=== PATIENT | female | born 1940 | race Caucasian/White ===

== ENCOUNTER → 2016-12-01 | Outpatient (CLI) | payer OTHER, MEDICARE ==
[~2016-12-01] MED LIST: ALL300 PO; ALPR1TAB3 PO; ASPI-232 PO; CHOL100010 PO; CHOL4POW6 PO; GLC500 PO; INSUINJ4 SC; IPRA1AER2 INH; LISI-461 PO; MELO7.5T5 PO; NYST100098 TOP; OMEG10007 PO; POTA1080 PO; TPRSR/100 PO
== END | disposition home or self-care (01) ==
LOC: C.LAB 09:48
PROVIDERS: ATTEND Nurse Practitioner Adult Health
DX: N20.0 Calculus of kidney (principal)

== ENCOUNTER → 2016-12-05 | Outpatient (CLI) | payer OTHER, MEDICARE ==
[2016-12-05 17:16] LABS: URINE APPEARANCE CLOUDY (CLEAR); URINE BILIRUBIN NEG (NEG); URINE COLOR YELLOW; URINE EPITHELIAL CELL AUTO >30 /lpf (0-5); URINE NITRITE NEG (NEG); URINE SPECIFIC GRAVITY 1.025 (1.000-1.030); UROBILINOGEN NEG (NEG)
[2016-12-05 17:17] LABS: MANUAL MICROSCOPIC REQUIRED? NO; REVIEW REQ? NO
[2016-12-05 17:24] LABS: ALT/SGPT 24 U/L (12-78); AST/SGOT 10 U/L (15-37); BLOOD UREA NITROGEN 26 mg/dl (7-18); BUN/CREATININE RATIO 21.5 (10-20); CALCIUM 9.1 mg/dl (8.5-10.1); CARBON DIOXIDE 27 mmol/L (21-32); CHLORIDE 107 mmol/L (98-107); GLUCOSE 158 mg/dl (70-99); POTASSIUM 4.6 mmol/L (3.5-5.1); SODIUM 143 mmol/L (136-145)
[2016-12-05 17:35] LABS: ALB/GLOB RATIO 0.9 (0.9-2); ALKALINE PHOSPHATASE 79 U/L (45-117)
[2016-12-05 18:14] LABS: BASO % 0.5 %; BASO ABS # 0.05 K/uL (0-0.2); COMPLETE YES; EOS % 2.8 %; GIANT PLATELETS 1+; HEMATOCRIT 41.1 % (37-47); IG% 0.7 %; LYMPH % 21.7 %; MEAN CELL VOLUME 95.4 fL (80-100); MEAN CORPUSCULAR HEMOGLOBIN 31.8 pg (25-34); MEAN CORPUSCULAR HGB CONC 33.3 g/dl (32-36); MEAN PLATELET VOLUME 11.2 fL (7.4-10.4); MONO % 5.6 %; NEUT % 68.7 %; PLATELET COUNT 393 K/uL (130-400); RED BLOOD COUNT 4.31 M/uL (4.2-5.4); SMUDGE CELLS PRESENT; WHITE BLOOD COUNT 9.23 K/uL (4.8-10.8)
== END | disposition home or self-care (01) ==
LOC: C.LABBFT 18:05
PROVIDERS: ATTEND Internal Medicine
DX: R41.0 Disorientation, unspecified (principal)

== ENCOUNTER → 2017-04-02 | Outpatient (CLI) | payer OTHER, MEDICARE ==
[2017-04-02 12:13] LABS: BASO % 0.3 %; BASO ABS # 0.03 K/uL (0-0.2); COMPLETE YES; EOS % 1.9 %; HEMATOCRIT 41.7 % (37-47); IG% 0.3 %; LYMPH % 17.1 %; LYMPH ABS # 1.49 K/uL (1.2-3.4); MEAN CELL VOLUME 96.8 fL (80-100); MEAN CORPUSCULAR HEMOGLOBIN 31.3 pg (25-34); MEAN CORPUSCULAR HGB CONC 32.4 g/dl (32-36); MEAN PLATELET VOLUME 11.2 fL (7.4-10.4); MONO % 6.2 %; NEUT % 74.2 %; PLATELET COUNT 345 K/uL (130-400); RED BLOOD COUNT 4.31 M/uL (4.2-5.4); WHITE BLOOD COUNT 8.73 K/uL (4.8-10.8)
[2017-04-02 12:30] LABS: ESTIMATED AVERAGE GLUCOSE 163 mg/dl; HA1C FLAG Normal (Normal)
[2017-04-02 12:33] LABS: CALCIUM 9.6 mg/dl (8.5-10.1)
[2017-04-02 12:39] LABS: BLOOD UREA NITROGEN 27 mg/dl (7-18); GLUCOSE 131 mg/dl (70-99)
[2017-04-02 12:40] LABS: ALT/SGPT 23 U/L (12-78); AST/SGOT 11 U/L (15-37); BUN/CREATININE RATIO 24.6 (10-20); CARBON DIOXIDE 22 mmol/L (21-32); CHLORIDE 108 mmol/L (98-107); POTASSIUM 4.4 mmol/L (3.5-5.1); SODIUM 140 mmol/L (136-145)
[2017-04-02 12:50] LABS: ALB/GLOB RATIO 0.9 (0.9-2); ALKALINE PHOSPHATASE 73 U/L (45-117); CHOLESTEROL 183 mg/dl (0-200); CHOLESTEROL/HDL RATIO 5.7; HDL CHOLESTEROL 32 mg/dl; LDL CHOLESTEROL CALCULATED 84 mg/dl; TRIGLYCERIDES 333 mg/dl (0-150); VERY LOW DENSITY LIPOPROT CALC 67 mg/dl
== END | disposition home or self-care (01) ==
LOC: C.LABBFT 10:58
PROVIDERS: ATTEND Internal Medicine
DX: R79.9 Abnormal finding of blood chemistry, unspecified (principal); E11.21 Type 2 diabetes mellitus with diabetic nephropathy

== ENCOUNTER → 2017-04-06 | Outpatient (CLI) | payer OTHER, MEDICARE ==
[2017-04-06 17:39] LABS: MANUAL MICROSCOPIC REQUIRED? NO; REVIEW REQ? NO; URINE APPEARANCE TURBID (CLEAR); URINE BILIRUBIN NEG (NEG); URINE COLOR YELLOW; URINE EPITHELIAL CELL AUTO >30 /lpf (0-5); URINE NITRITE NEG (NEG); URINE SPECIFIC GRAVITY 1.027 (1.000-1.030); UROBILINOGEN NEG (NEG)
[2017-04-06 18:17] LABS: RATIO 347.9 mcg/mg (0-30.0)
== END ==
LOC: C.LABBFT 11:38
PROVIDERS: ATTEND Internal Medicine
DX: N39.0 Urinary tract infection, site not specified (principal)

== ENCOUNTER → 2017-05-05 | Outpatient (CLI) | payer OTHER, MEDICARE ==
[~2017-05-05] MED LIST changes: +OPTIRAY 320 IV PRN
--- NOTE | 2017-05-05 10:27 | DIAGNOSTIC IMAGING REPORT ---
ABD/PELVIS IV AND ORAL CONT HISTORY: 77 years-old Female with a follow-up exam. History of breast cancer. COMPARISON: CT chest of same day, PET/CT 07/04/2015, CT abdomen 12/13/2007. TECHNIQUE: Multiple axial CT images of the abdomen and pelvis were obtained following the intravenous administration of 119 mL Optiray 320. Oral contrast was also administered. A dose lowering technique was used consistent with the principals of SOLANGE. FINDINGS: Postsurgical changes are seen within the basal left lower lobe. Subsegmental bibasilar atelectasis is noted. No pneumoperitoneum is identified. Imaged inferior cardiac chambers appear enlarged with coronary arterial calcifications seen. Distal Neeibr-o-Gags catheter is seen terminating in the right atrium. There is diffuse fatty infiltration of the liver which appears enlarged. Multiple punctate calcifications are seen scattered throughout the splenic parenchyma consistent with healed granulomatous disease. Calcifications are seen within the mid pancreatic body suggesting sequela of chronic pancreatitis. There is moderate pancreatic atrophy. The right adrenal gland appears normal. There is a 1.4 x 1.1 cm lesion of the left adrenal gland which appears unchanged from comparison and was not FDG avid on comparison PET CT suggesting benign etiology. Gallbladder appears normal. There is low attenuating 8 mm lesion of the posterior aspect interpolar left kidney, nonspecific and unchanged suggesting cyst. Similar appearing 8 mm lesion is seen within the superior pole the right kidney. Urinary bladder is unremarkable. Uterus is atrophic. There is extensive atherosclerotic plaquing of the abdominal aorta and iliac vasculature. No pathologic-appearing adenopathy identified. There is no bowel obstruction. There are large lobulated fatty attenuating structures of the transverse colon suggesting lipomas, one of which measures 3.8 x 1.6 cm and the second measures 2.2 x 1.7 cm. Patient obesity is noted. No suspicious lytic or blastic bony lesions are identified. Severe multilevel lower lumbar spine facet arthropathy is noted. There is mild levoscoliosis of the lumbar spine. IMPRESSION: 1. Stable appearance of the abdomen and pelvis without acute process or evidence of metastatic disease. No pathologic adenopathy. 2. 1.4 x 1.1 cm lesion of the left adrenal gland is unchanged dating back to CT study dated 12/13/2007 compatible with benign etiology. 3. Hepatomegaly with hepatosteatosis. 4. Large nonobstructing intraluminal lipomas of the transverse colon are seen measuring up to 3.8 cm. 5. Additional incidental findings as above. The above report was generated using voice recognition software. It may contain grammatical, syntax or spelling errors. Electronically signed by: Cecilio Ham M.D. 05/05/2017 10:25 AM Dictated Date/Time: 05/05/2017 10:14 AM
--- NOTE | 2017-05-05 10:28 | DIAGNOSTIC IMAGING REPORT ---
(CHEST) THORAX WITH CT DOSE: HISTORY: Breast carcinoma FEMALE BREAST CA TECHNIQUE: Multiaxial CT images of the chest were performed following the intravenous administration of contrast. A dose lowering technique was utilized adhering to the principles of ALARA. COMPARISON: PET/CT dated 07/04/2015 FINDINGS: stable persistent left substernal thyroid. Atherosclerotic change thoracic aorta with no evidence for aneurysm. Pretracheal and. Esophageal nodes measuring up to 9 mm. Neva changes are considered similar as compared to the prior exam. Evaluation of lung parenchyma shows somewhat improved aeration compared to the prior study. Nodular density previously described measuring 1.3 cm appears less well-defined. 4 mm nodular density superior segment left lower lobe currently present on the prior exam. Small nodular density right base transaxial image 31 unchanged. Groundglass density left lung base stable. Degenerative changes thoracic spine stable. Sclerotic change of the posterior facets T3 unaltered. Potential erosive change and or destructive change T4. Increased sclerotic change. This potentially represents healing of a poorly visualized abnormality in the prior exam. IMPRESSION: Stable to slightly improved CT of the chest compared to the prior exam. No new or interval changes. Stable to improved parenchymal nodularity. Potential metastatic changes T3 and T4 showing increased sclerotic change which may indicate partial interval healing The above report was generated using voice recognition software. It may contain grammatical, syntax or spelling errors. Electronically signed by: Santi Licea M.D. 05/05/2017 10:26 AM Dictated Date/Time: 05/05/2017 10:14 AM
== END | disposition home or self-care (01) ==
LOC: C.CTS 04-27 12:25
PROVIDERS: ATTEND Nurse Practitioner Family
DX: C50.919 Malignant neoplasm of unspecified site of unspecified female breast (principal); E27.9 Disorder of adrenal gland, unspecified; R16.0 Hepatomegaly, not elsewhere classified; K76.0 Fatty (change of) liver, not elsewhere classified; D17.79 Benign lipomatous neoplasm of other sites; R91.8 Other nonspecific abnormal finding of lung field

== ENCOUNTER → 2017-08-21 | Outpatient (CLI) | payer OTHER, MEDICARE ==
[~2017-08-21] MED LIST changes: -OPTIRAY 320 IV PRN
[2017-08-21 12:09] LABS: BLOOD UREA NITROGEN 22 mg/dl (7-18); BUN/CREATININE RATIO 20.6 (10-20); CALCIUM 9.2 mg/dl (8.5-10.1); CARBON DIOXIDE 26 mmol/L (21-32); CHLORIDE 103 mmol/L (98-107); CREATININE 1.06 mg/dl (0.60-1.20); GLUCOSE 172 mg/dl (70-99); POTASSIUM 4.5 mmol/L (3.5-5.1); SODIUM 138 mmol/L (136-145)
== END | disposition home or self-care (01) ==
LOC: C.LAB 08:59
PROVIDERS: ATTEND Nurse Practitioner Adult Health
DX: N18.9 Chronic kidney disease, unspecified (principal)

== ENCOUNTER → 2017-09-30 | Outpatient (CLI) | payer OTHER, MEDICARE ==
[2017-09-30 17:31] LABS: BASO % 0.6 %; BASO ABS # 0.05 K/uL (0-0.2); COMPLETE YES; EOS % 2.6 %; HEMATOCRIT 42.2 % (37-47); IG% 0.7 %; LYMPH % 20.7 %; MEAN CELL VOLUME 99.1 fL (80-100); MEAN CORPUSCULAR HEMOGLOBIN 31.9 pg (25-34); MEAN CORPUSCULAR HGB CONC 32.2 g/dl (32-36); MEAN PLATELET VOLUME 11.2 fL (7.4-10.4); MONO % 7.8 %; NEUT % 67.6 %; PLATELET COUNT 344 K/uL (130-400); RED BLOOD COUNT 4.26 M/uL (4.2-5.4); WHITE BLOOD COUNT 8.69 K/uL (4.8-10.8)
[2017-09-30 17:44] LABS: BLOOD UREA NITROGEN 26 mg/dl (7-18); BUN/CREATININE RATIO 17.7 (10-20); CALCIUM 9.2 mg/dl (8.5-10.1); CARBON DIOXIDE 27 mmol/L (21-32); CHLORIDE 108 mmol/L (98-107); CREATININE 1.47 mg/dl (0.60-1.20); GLUCOSE 165 mg/dl (70-99); POTASSIUM 5.3 mmol/L (3.5-5.1); SODIUM 139 mmol/L (136-145)
[2017-09-30 17:57] LABS: ALB/GLOB RATIO 0.8 (0.9-2); ALKALINE PHOSPHATASE 80 U/L (45-117); ALT/SGPT 27 U/L (12-78); AST/SGOT 13 U/L (15-37); CHOLESTEROL 185 mg/dl (0-200); CHOLESTEROL/HDL RATIO 5.3; HDL CHOLESTEROL 35 mg/dl; LDL CHOLESTEROL CALCULATED 76 mg/dl; TRIGLYCERIDES 368 mg/dl (0-150); VERY LOW DENSITY LIPOPROT CALC 74 mg/dl
[2017-10-01 06:38] LABS: ESTIMATED AVERAGE GLUCOSE 174 mg/dl; HA1C FLAG Normal (Normal)
== END | disposition home or self-care (01) ==
LOC: C.LABBFT 15:36
PROVIDERS: ATTEND Internal Medicine
DX: E11.21 Type 2 diabetes mellitus with diabetic nephropathy (principal)

== ENCOUNTER → 2018-04-29 | Outpatient (CLI) | payer OTHER, MEDICARE ==
[2018-04-29 10:29] LABS: BASO % 0.6 %; BASO ABS # 0.06 K/uL (0-0.2); EOS % 1.9 %; EOS ABS # 0.19 K/uL (0-0.5); HEMATOCRIT 43.8 % (37-47); HEMOGLOBIN 14.7 g/dL (12.0-16.0); IG# 0.03 K/uL (0.00-0.02); LYMPH % 19.7 %; LYMPH ABS # 1.94 K/uL (1.2-3.4); MEAN CELL VOLUME 100.2 fL (80-100); MEAN CORPUSCULAR HEMOGLOBIN 33.6 pg (25-34); MEAN CORPUSCULAR HGB CONC 33.6 g/dl (32-36); MEAN PLATELET VOLUME 11.2 fL (7.4-10.4); MONO % 5.8 %; MONO ABS # 0.57 K/uL (0.11-0.59); NEUT % 71.7 %; NEUT ABS # 7.04 K/uL (1.4-6.5); PLATELET COUNT 354 K/uL (130-400); RED CELL DISTRIBUTION WIDTH CV 13.8 % (11.5-14.5); RED CELL DISTRIBUTION WIDTH SD 50.9 fL (36.4-46.3); WHITE BLOOD COUNT 9.83 K/uL (4.8-10.8)
[2018-04-29 10:48] LABS: ALBUMIN 3.4 gm/dl (3.4-5.0); ALKALINE PHOSPHATASE 83 U/L (45-117); ALT/SGPT 26 U/L (12-78); AST/SGOT 17 U/L (15-37); BLOOD UREA NITROGEN 24 mg/dl (7-18); CALCIUM 9.1 mg/dl (8.5-10.1); CARBON DIOXIDE 21 mmol/L (21-32); CREATININE 1.22 mg/dl (0.60-1.20); GLUCOSE 216 mg/dl (70-99); POTASSIUM 4.1 mmol/L (3.5-5.1); SODIUM 140 mmol/L (136-145); TOTAL PROTEIN 7.4 gm/dl (6.4-8.2)
== END | disposition home or self-care (01) ==
LOC: C.LABSPEC 10:15
PROVIDERS: ATTEND Nurse Practitioner Family
DX: C50.912 Malignant neoplasm of unspecified site of left female breast (principal)

== ENCOUNTER → 2018-06-02 | Outpatient (CLI) | payer OTHER, MEDICARE ==
--- NOTE | 2018-06-02 13:38 | MAMMOGRAPHY REPORT ---
BILATERAL DIGITAL DIAGNOSTIC MAMMOGRAM TOMOSYNTHESIS WITH CAD: 06/02/2018 CLINICAL HISTORY: History of left breast cancer status post lumpectomy October 2015 as well as radiat ion therapy. Also with remote history of right breast cancer status post lumpectomy. The patient repo rts no lumps or other complaints. TECHNIQUE: Breast tomosynthesis in addition to standard 2D mammography was performed. Current study w as also evaluated with a Computer Aided Detection (CAD) system. Bilateral CC and MLO 2D and tomosynt hesis images and spot magnification left CC and ML views were obtained. COMPARISON: Comparison is made to exams dated: 09/18/2016 mammogram, 08/26/2016 mammogram, 11/02/2015 mammogram, 09/05/2015 mammogram, 08/23/2015 mammogram, and 11/02/2015 [facility]. BREAST COMPOSITION: The tissue of both breasts is almost entirely fatty. FINDINGS: Again noted are postsurgical changes in the left upper outer quadrant from prior lumpectomy. Coarse benign dystrophic calcifications are noted at the lumpectomy bed, without suspicious masses or cluste rs of calcifications noted. The remainder of both breasts are stable compared to prior exams, withou t suspicious masses, calcifications, or areas of architectural distortion noted. There are stable po stsurgical changes in the right breast from remote lumpectomy. Oval circumscribed 5 mm benign-appear ing mass in the right superior posterior breast on the MLO view is stable compared to multiple prior exams including the August 2015 exam and is therefore benign and likely represents an intramammary lymph node. Scattered bilateral benign-appearing calcifications are not significantly changed. A li near scar marker denotes a scar on the left breast. IMPRESSION: ACR BI-RADS CATEGORY 2: BENIGN Stable postsurgical changes from bilateral lumpectomies, without mammographic evidence of malignancy in either breast. Recommend routine bilateral tomosynthesis mammograms in one year; I would recommen d the patient remain a diagnostic patient in case any additional views need to be obtained. The patient has been verbally notified of the results. Some breast cancers are not detected with mammography. A negative mammographic report should not ciarra y biopsy if a clinically suggestive mass is present. Elda Mason M.D. ah/:06/02/2018 09:58:58 Rn Patient Care: RT Renate(R)(Rajat), [facility] letter sent: Normal /2 BI-RADS Code: ACR BI-RADS Category 2: Benign
== END | disposition home or self-care (01) ==
LOC: C.MAMM 09:25
PROVIDERS: ATTEND Nurse Practitioner Family
DX: C50.912 Malignant neoplasm of unspecified site of left female breast (principal); Z98.890 Other specified postprocedural states

== ENCOUNTER 2018-12-28 21:01 | Inpatient (IN) ==
[2018-12-28] MEDS ORDERED: ONDANSETRON INJ 2 MG/ML 2 ML VIAL ONE (21:13)
[2018-12-28] MEDS ORDERED: SODIUM CHLORIDE 0.9% 1000ML 500 ML IV ONE (21:17)
[2018-12-28 21:33] LABS: Basophils # (auto) 0.02 K/uL (0-0.2); Basophils % (auto) 0.1 %; Eosinophils # (auto) 0.02 K/uL (0-0.5); Eosinophils % (auto) 0.1 %; Hematocrit (blood only) 41.4 % (37-47); Hemoglobin 13.6 g/dL (12.0-16.0); Immature Granulocytes # (auto) 0.14 K/uL (0.00-0.02); Immature Granulocytes % (auto) 0.9 %; Lymphocytes # (auto) 0.27 K/uL (1.2-3.4); Lymphocytes % (auto) 1.8 %; Mean Corpuscular Hgb Conc 32.9 g/dL (32-36); Mean Platelet Volume 11.3 fL (7.4-10.4); Monocytes # (auto) 0.56 K/uL (0.11-0.59); Monocytes % (auto) 3.7 %; Neutrophils # (auto) 13.94 K/uL (1.4-6.5); Neutrophils % (auto) 93.4 %; Nucleated RBC # (auto) 0.02 K/uL (0-0); Nucleated RBC % (auto) 0.2 %; Platelet Count 292 K/uL (130-400); RDW Coefficient of Variation 14.7 % (11.5-14.5); RDW Standard Deviation 54.4 fL (36.4-46.3); Red Blood Count 4.06 M/uL (4.2-5.4); White Blood Count 14.95 K/uL (4.8-10.8)
--- NOTE | 2018-12-28 21:43 | XRay Report ---
SINGLE VIEW CHEST CLINICAL HISTORY: Sepsis. FINDINGS: An AP, portable, upright chest radiograph is compared to study dated 11/21/2018 and correlat ed with chest CT dated 09/09/2018. The examination is degraded by portable technique and patient rota tion. A left subclavian central venous infusion port is unchanged in position. The heart is enlarged and there is atherosclerotic calcification of the thoracic aorta. There is evidence of congestive fa ilure. Trace pleural effusions are suspected and there is bibasilar atelectasis. No pneumothorax is s een. The skeletal structures are osteopenic. The bony thorax is grossly intact. Degenerative change a nd scoliosis are noted in the thoracic spine. IMPRESSION: Cardiomegaly with evidence of congestive failure. Electronically signed by: Jayy Eduardo M.D. 12/28/2018 9:42 PM
[2018-12-28 21:51] LABS: Alanine Aminotransferase 22 U/L (12-78); Aspartate Aminotransferase 13 U/L (15-37); BUN Creatinine Ratio 22.1 (10-20); Blood Urea Nitrogen 27 mg/dl (7-18); Calcium 9.1 mg/dl (8.5-10.1); Carbon Dioxide 25 mmol/L (21-32); Chloride 107 mmol/L (98-107); Est GFR (African American) 49.3; Est GFR (Non-African American) 42.5; Glucose 197 mg/dl (70-99); Potassium 4.1 mmol/L (3.5-5.1); Sodium 139 mmol/L (136-145)
[2018-12-28 21:54] LABS: Albumin Globulin Ratio 0.8 (0.9-2); Alkaline Phosphatase 105 U/L (45-117); Bilirubin,Total 0.6 mg/dl (0.2-1)
[2018-12-28] MEDS ORDERED: ACETAMINOPHEN 325 MG TAB PO STA (21:55)
[2018-12-28 22:06] LABS: Appearance Urine Cloudy (Clear); Bacteria Urine Automated 4+ (Negative); Bilirubin Urine Negative (Negative); Blood Urine 1+ (Negative); Color Urine Yellow; Epithelial Cell Urine Auto >30 /lpf (0-5); Glucose Urine UA Negative (Negative); Ketones Urine Negative (Negative); Leukocyte Esterase Urine 1+ (Negative); Nitrite Urine Positive (Negative); Protein Urine 2+ (Negative); RBC Urine Automated 0-4 /hpf (0-4); Urobilinogen Urine Negative (Negative)
[2018-12-28] MEDS ORDERED: ACETAMINOPHEN 65 ML IV ONE (22:16)
[2018-12-28] MEDS ORDERED: PIPERACILL/TAZOBAC CONSULT ACTIVE PRN (22:17)
[2018-12-28] MEDS ORDERED: PIPERACILLIN/TAZOBACTAM 4.5 GM/120 ML BAG IV ONE (22:17)
[2018-12-28] MEDS ORDERED: ACETAMINOPHEN 1000 MG/100 ML IV IV ONE (22:22)
[2018-12-28 22:33] LABS: Prothrombin Time 10.1 Seconds (9.0-12.0)
[2018-12-28 23:01] LABS: Partial Thromboplastin Ratio < 0.8; Partial Thromboplastin Time < 20.0 Seconds (21.0-31.0)
--- NOTE | 2018-12-28 23:15 | CT Scan Report ---
CT SCAN OF THE ABDOMEN AND PELVIS WITHOUT IV CONTRAST CLINICAL HISTORY: Generalized abdominal pain. COMPARISON STUDY: Abdominal CT dated 05/05/2017. TECHNIQUE: CT scan of the abdomen and pelvis is performed from the lung bases to the proximal femora. Images are reviewed in the axial, sagittal, and coronal planes. IV contrast was not administered for this examination as per the referring clinician. Note that the examination was performed in signific antly suboptimal fashion without oral and IV contrast. The examination is also compromised by streak and motion artifact. A dose lowering technique was utilized adhering to the principles of ALARA. CT DOSE: 1981.72 mGy.cm FINDINGS: Lung bases: The heart is enlarged without pericardial effusion. The tip of a central venous infusion port terminates at the cavoatrial junction. The coronary arteries are densely calcified. There is a s mall hiatal hernia. There is no airspace consolidation or pleural effusion. Bibasilar scarring/atelec tasis is noted. Postoperative change is suggested at the left lung base. Liver: The unenhanced liver is enlarged, measuring 19 cm in length. There is evidence of hepatic stea tosis, with fatty sparing seen adjacent to gallbladder fossa. There is no intrahepatic biliary ductal dilatation. Gallbladder: Unremarkable. Spleen: Normal in size and attenuation. There are numerous calcified splenic granulomas. Pancreas: The unenhanced pancreas is atrophic and grossly unremarkable. Adrenal glands: A 2 cm left adrenal adenoma is unchanged. The right adrenal gland is normal in appear ance. Kidneys: The unenhanced kidneys are atrophic. There is moderate right hydroureteronephrosis. The righ t ureter is distended to the level of the bladder. No hydronephrosis is seen on the left. There is a punctate nonobstructing calculus in the left upper pole. A 12 mm exophytic cyst arises from the left lower pole. Abdominal vasculature: The abdominal aorta is normal in course and caliber noting advanced atheroscle rotic calcification. Bowel: There is moderate colonic fecal retention. No bowel obstruction is seen. Colonic lipomas are s uggested. The appendix is well-visualized and normal. Peritoneum: There is laxity of the ventral abdominal wall with protrusion of abdominal contents. Ther e is no intraperitoneal free air or abdominal ascites. Lymphadenopathy: None. Pelvic viscera: The bladder is distended but otherwise normal in appearance. The uterus is atrophic v ersus surgically absent. No adnexal lesion is seen. Skeletal structures: The skeletal structures are osteopenic. There is moderate lumbosacral spondylosi s. No lytic or blastic lesions are seen. IMPRESSION: 1. Significantly suboptimal examination without oral and IV contrast. The examination is also comprom ised by streak and motion artifact. 2. There is moderate right hydroureteronephrosis. The ureter is dilated to the level of the significa ntly distended bladder. No clear cause of obstruction is seen, and this is new from the 05/05/2017 exa mination. 3. There is no left-sided hydronephrosis. 4. Cardiomegaly. 5. Colonic fecal retention. 6. Hepatomegaly and hepatic steatosis. 7. There is a punctate nonobstructing left renal calculus. 8. Additional findings as above. Electronically signed by: Jayy Eduardo M.D. 12/28/2018 11:14 PM
--- NOTE | 2018-12-29 00:25 | Emergency Department Note ---
Entered by Ashlie Gonsalez acting as a scribe for History of Present Illness General Chief complaint: Illness Stated complaint: ILLNESS, VOMITING DIARRHEA, AMS Source: patient and RN notes reviewed Mode of arrival: EMS Limitations: altered mental status History of Present Illness Provider complaint: AMS Onset (ago): day(s) 3 Location: head Pain Consistency: + other (worsening) Quality: + other (less responsive) Associated symptoms: + denies other symptoms (abd pain), + confusion, + fever/chills and + nausea/vomiting; no chest pain, no headaches and no shortness of breath Treatments prior to arrival: other (Tylenol) The patient is a 78 year old female who presents to the Emergency Room via EMS with complaints of a worsening altered mental status that began 3 days ago. RN notes show that the patient has been less responsive and that today she had episodes of vomiting, diarrhea and a fever of 100.7. The RN also states that the patient wears 4 L of nasal cannula oxygen at baseline. The family at bedside reports that the patient has had a worsening confusion for the past few days. They also note that "her breathing appears heavier." The patient denies any chest pain, abdominal pain, shortness of breath or headaches. Home Medications Home Medications Medication Instructions Recorded Confirmed Type Cholestyramine Light 4 g PO HS 09/09/18 12/28/18 History Levemir FlexTouch U-100 Insuln 60 unit SUBCUT DAILY 09/09/18 12/28/18 History allopurinol 300 mg PO QAM 09/09/18 12/28/18 History aspirin [Aspir-81] 81 mg PO DAILY 09/09/18 12/28/18 History lisinopril [Zestril] 40 mg PO DAILY 09/09/18 12/28/18 History meloxicam [Mobic] 7.5 mg PO BID PRN 09/09/18 12/28/18 History metformin 1,000 mg PO BID 09/09/18 12/28/18 History fluticasone propion-salmeterol 1 inha INH BID #60 ea 09/12/18 12/28/18 Rx [Advair Diskus] acetaminophen [Tylenol] 650 mg PO Q6H PRN 12/28/18 12/28/18 History acetaminophen [Tylenol] 650 mg PO TID PRN 12/28/18 12/28/18 History bisacodyl [Dulcolax (bisacodyl)] 10 mg KS UD PRN 12/28/18 12/28/18 History cholecalciferol (vitamin D3) 2,000 unit PO DAILY 12/28/18 12/28/18 History [Vitamin D3] diclofenac sodium [Voltaren] 4 g TOPICAL DAILY 12/28/18 12/28/18 History guar gum 4 g MISCELLANEOUS Q12 12/28/18 12/28/18 History insulin lispro [Humalog U-100 1 sliding scale dose SUBCUT 12/28/18 12/28/18 History Insulin] USEASDIRECTD magnesium hydroxide [Milk of 30 ml PO UD PRN 12/28/18 12/28/18 History Magnesia] metoprolol succinate 100 mg PO DAILY 12/28/18 12/28/18 History nystatin 1 applic TOPICAL BID 12/28/18 12/28/18 History Allergies Allergy/AdvReac Type Severity Reaction Status Date / Time Fibrate Anti-Lipidemics Allergy Unknown SEVERE LEG Verified 12/28/18 23:17 PAIN/CRAMPING latex Allergy Unknown SKIN Verified 12/28/18 23:17 TEARING Xkokaiq-[id number]-Mnh Reductase AdvReac Unknown SEVERE LEG Verified 12/28/18 23:17 Inhibitor PAIN/CRAMPING Unclassified Drugs Allergy Unknown CAT GUT Uncoded 12/28/18 23:17 SUTURES Past Med/Surg History Medical History Acute on chronic diastolic heart failure Hypertensive urgency Chronic diarrhea Gout Chronic diastolic heart failure Obesity Nephrolithiasis Osteoarthritis Anemia Bladder cancer (Acute) Acute renal failure (Resolved) Hypertension (Chronic) Hyperlipidemia (Chronic) Diabetes (Chronic) Breast cancer Breast cancer of lower-outer quadrant of left female breast (Acute 11/02/15) "High-grade transitional cell carcinoma bladder, stage [id number] Status post combined radiation and chemotherapy, radiation completed 10/18/2005 received 6660 cGy. 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 Pathologic stage pTIa NXM0 Self detected right breast mass, status post right partial mastectomy and sentinel lymph node biopsy. 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 Pathologic stage pTIa NXM0 Self detected right breast mass, status post right partial mastectomy and sentinel lymph node biopsy. 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 ) Physical Exam Vital Signs Vital Signs - 24 hr 12/28/18 21:00 12/28/18 22:00 12/28/18 22:01 Temperature 37.0 C Temperature Source Oral Sepsis Recent Fever Within 48 Hours Yes Sepsis New/Unexplained Change in Mental Status Yes Sepsis Action Taken by Nursing Physician Notified Pulse Rate 112 H Pulse Rate [Left Finger] 99 H Respiratory Rate 26 H 21 Respiratory Effort / Characteristics Non-Labored Respiratory Depth Normal Respiratory Pattern Regular Blood Pressure 127/59 L Blood Pressure [Left Arm] 114/56 L Blood Pressure Mean 81 Blood Pressure Mean [Left Arm] 75 Pulse Oximetry 93 92 92 Oxygen Delivery Method Nasal Cannula Nasal Cannula Nasal Cannula Oxygen Flow Rate 4 4 4 12/28/18 22:17 12/28/18 23:30 12/29/18 00:01 Temperature 38.7 C H Temperature Source Rectal Sepsis Recent Fever Within 48 Hours Sepsis New/Unexplained Change in Mental Status Sepsis Action Taken by Nursing Pulse Rate Pulse Rate [Left Finger] 101 H 99 H Respiratory Rate 17 26 H Respiratory Effort / Characteristics Respiratory Depth Respiratory Pattern Blood Pressure Blood Pressure [Left Arm] 103/52 L 112/57 L Blood Pressure Mean Blood Pressure Mean [Left Arm] 69 75 Pulse Oximetry 96 96 Oxygen Delivery Method Oxymask Oxymask Oxygen Flow Rate 7 7 Constitutional: Vital signs reviewed. Eyes: Pupils are equal round reactive to light. Conjunctiva are noninjected. ENT: Pharynx is clear without erythema or exudate. Mucous membranes are dry. Neck supple without meningeal signs. Respiratory: Clear to auscultation bilaterally. Breath sounds are equal bilaterally. Cardiovascular: Tachycardic with a regular rhythm. No rubs or gallops. GI: Soft, nondistended and nontender. Bowel sounds are present. Musculoskeletal: No peripheral edema. No lower extremity tenderness. Integumentary: No cyanosis. Neurological: The patient is alert and oriented x 2. Did not know date. No focal deficits. Psychiatric: Difficult to assess. Course 2110: Past medical records reviewed. The patient was evaluated in room A3, and a complete history and physical examination were performed. 2234: I updated the patient's family on her test results. 9: I discussed the patients case with Dr. Pretty Urology. She does not believe any acute intervention is needed other than a jacobsen catheter to drain her bladder. She requests I talk with the radiologist to make sure there is no periureteral or perinephric stranding or inflammation. Otherwise, admit to medicine. 2334: I updated the patient and her family on tonight's findings. 2337: I reviewed the patient's case with Dr. Eduardo - Radiology. There is some mild perinephric stranding bilaterally and some very mild periuriteric stranding on the right side. 2341: I discussed Dr. Eduardo's comments with Dr. Pretty - Urology. She still feels no need for acute surgical intervention. 0010: I reviewed the patient's case with Dr. Reyes - [facility] Hospitalist. He will evaluate the patient for further management. Jacobsen catheter was placed and almost 1 L of urine was drained. Administered Medications Discontinued Medications Acetaminophen (Tylenol) 650 mg PO NOW STA Stop: 12/28/18 21:56 Last Admin: 12/28/18 22:50 Dose: Not Given Documented by: [id number] Acetaminophen (Ofirmev) Confirm Administered Dose 1,000 mg IV .STK-MED ONE Stop: 12/28/18 22:23 Last Admin: 12/28/18 22:46 Dose: Not Given Documented by: [id number] Sodium Chloride (Nss 1000ml) 500 mls @ 999 mls/hr IV .Q31M ONE Stop: 12/28/18 21:47 Last Infusion: 12/28/18 22:49 Dose: 0 mls/hr Documented by: [id number] Admin: 12/28/18 22:09 Dose: 999 mls/hr Documented by: [id number] Acetaminophen (Ofirmev) 65 mls @ 200 mls/hr IV NOW ONE Stop: 12/28/18 22:35 Last Infusion: 12/28/18 23:17 Dose: 0 mls/hr Documented by: [id number] Admin: 12/28/18 22:40 Dose: 200 mls/hr Documented by: [id number] Piperacillin Sod/Tazobactam Sod (Zosyn) 4.5 gm in 120 mls @ 240 mls/hr IV NOW ONE Stop: 12/28/18 22:46 Last Infusion: 12/28/18 23:17 Dose: 0 mls/hr Documented by: [id number] Admin: 12/28/18 22:46 Dose: 240 mls/hr Documented by: [id number] Medical Decision Making Differential Diagnosis Differential Diagnosis includes: sepsis, UTI, pneumonia, influenza, dehydration, colitis. Medical Records Attestation: I reviewed the patient's medical records. Home Medications Current Medication List: was personally reviewed by me Laboratory Data Attestation: I reviewed the patient's lab results. Result diagrams: 12/28/18 21:10 12/28/18 21:10 Lab Results 12/28/18 12/28/18 12/28/18 Range/Units 21:10 21:10 21:10 WBC 14.95 H (4.8-10.8) K/uL RBC 4.06 L (4.2-5.4) M/uL Hgb 13.6 (12.0-16.0) g/dL Hct 41.4 (37-47) % MCV 102.0 H (80-100) fL MCH 33.5 (25-34) pg MCHC 32.9 (32-36) g/dL RDW Std Deviation 54.4 H (36.4-46.3) fL RDW Coeff of Marisol 14.7 H (11.5-14.5) % Plt Count 292 (130-400) K/uL MPV 11.3 H (7.4-10.4) fL Immature Gran % (Auto) 0.9 % Neut % (Auto) 93.4 % Lymph % (Auto) 1.8 % Laurens % (Auto) 3.7 % Eos % (Auto) 0.1 % Baso % (Auto) 0.1 % Immature Gran # (Auto) 0.14 H (0.00-0.02) K/uL Neut # (Auto) 13.94 H (1.4-6.5) K/uL Lymph # (Auto) 0.27 L (1.2-3.4) K/uL [place] # (Auto) 0.56 (0.11-0.59) K/uL Eos # (Auto) 0.02 (0-0.5) K/uL Baso # (Auto) 0.02 (0-0.2) K/uL Absolute Nucleated RBC 0.02 H (0-0) K/uL Nucleated RBC % (auto) 0.2 % PT Cancelled INR Cancelled APTT Cancelled PTT Ratio Cancelled Sodium 139 (136-145) mmol/L Potassium 4.1 (3.5-5.1) mmol/L Chloride 107 (98-107) mmol/L Carbon Dioxide 25 (21-32) mmol/L Anion Gap 7.0 (3-11) BUN 27 H (7-18) mg/dl Creatinine 1.21 H (0.6-1.2) mg/dl Est Cr Clr Drug Dosing Not Reportable Est GFR ( Amer) 49.3 Est GFR (Non-Af Amer) 42.5 BUN/Creatinine Ratio 22.1 H (10-20) Glucose 197 H (70-99) mg/dl POC Lactic Acid Jesus (0.90-1.70) mmol/L Calcium 9.1 (8.5-10.1) mg/dl Total Bilirubin 0.6 (0.2-1) mg/dl AST 13 L (15-37) U/L ALT 22 (12-78) U/L Alkaline Phosphatase 105 (45-117) U/L Total Protein 7.0 (6.4-8.2) gm/dl Albumin 3.0 L (3.4-5.0) gm/dl Globulin 4.0 (2.5-4.0) gm/dl Albumin/Globulin Ratio 0.8 L (0.9-2) Urine Color Urine Appearance (Clear) Urine pH (4.5-7.5) Ur Specific [place] (1.000-1.030) Urine Protein (Negative) Urine Glucose (UA) (Negative) Urine Ketones (Negative) Urine Blood (Negative) Urine Nitrite (Negative) Urine Bilirubin (Negative) Urine Urobilinogen (Negative) Ur Leukocyte Esterase (Negative) Urine WBC (Auto) (0-5) /hpf Urine RBC (Auto) (0-4) /hpf U Hyaline Cast (Auto) (0-5) /lpf U Epithel Cells (Auto) (0-5) /lpf Urine Bacteria (Auto) (Negative) Ur Renal Epithelial Cell Influenza Type A Ag (Neg) Influenza Type B Ag (Neg) 12/28/18 12/28/18 12/28/18 Range/Units 21:24 21:52 21:55 WBC (4.8-10.8) K/uL RBC (4.2-5.4) M/uL Hgb (12.0-16.0) g/dL Hct (37-47) % MCV (80-100) fL MCH (25-34) pg MCHC (32-36) g/dL RDW Std Deviation (36.4-46.3) fL RDW Coeff of Marisol (11.5-14.5) % Plt Count (130-400) K/uL MPV (7.4-10.4) fL Immature Gran % (Auto) % Neut % (Auto) % Lymph % (Auto) % Laurens % (Auto) % Eos % (Auto) % Baso % (Auto) % Immature Gran # (Auto) (0.00-0.02) K/uL Neut # (Auto) (1.4-6.5) K/uL Lymph # (Auto) (1.2-3.4) K/uL [place] # (Auto) (0.11-0.59) K/uL Eos # (Auto) (0-0.5) K/uL Baso # (Auto) (0-0.2) K/uL Absolute Nucleated RBC (0-0) K/uL Nucleated RBC % (auto) % PT INR APTT PTT Ratio Sodium (136-145) mmol/L Potassium (3.5-5.1) mmol/L Chloride (98-107) mmol/L Carbon Dioxide (21-32) mmol/L Anion Gap (3-11) BUN (7-18) mg/dl Creatinine (0.6-1.2) mg/dl Est Cr Clr Drug Dosing Est GFR ( Amer) Est GFR (Non-Af Amer) BUN/Creatinine Ratio (10-20) Glucose (70-99) mg/dl POC Lactic Acid Jesus 4.33 H (0.90-1.70) mmol/L Calcium (8.5-10.1) mg/dl Total Bilirubin (0.2-1) mg/dl AST (15-37) U/L ALT (12-78) U/L Alkaline Phosphatase (45-117) U/L Total Protein (6.4-8.2) gm/dl Albumin (3.4-5.0) gm/dl Globulin (2.5-4.0) gm/dl Albumin/Globulin Ratio (0.9-2) Urine Color Yellow Urine Appearance Cloudy H (Clear) Urine pH 5.0 (4.5-7.5) Ur Specific [place] 1.020 (1.000-1.030) Urine Protein 2+ H (Negative) Urine Glucose (UA) Negative (Negative) Urine Ketones Negative (Negative) Urine Blood 1+ H (Negative) Urine Nitrite Positive H (Negative) Urine Bilirubin Negative (Negative) Urine Urobilinogen Negative (Negative) Ur Leukocyte Esterase 1+ H (Negative) Urine WBC (Auto) 10-30 H (0-5) /hpf Urine RBC (Auto) 0-4 (0-4) /hpf U Hyaline Cast (Auto) 5-10 H (0-5) /lpf U Epithel Cells (Auto) >30 H (0-5) /lpf Urine Bacteria (Auto) 4+ H (Negative) Ur Renal Epithelial Cell Not Reportable Influenza Type A Ag Neg for Influ A (Neg) Influenza Type B Ag Neg for Influ B (Neg) 12/28/18 Range/Units 22:13 WBC (4.8-10.8) K/uL RBC (4.2-5.4) M/uL Hgb (12.0-16.0) g/dL Hct (37-47) % MCV (80-100) fL MCH (25-34) pg MCHC (32-36) g/dL RDW Std Deviation (36.4-46.3) fL RDW Coeff of Marisol (11.5-14.5) % Plt Count (130-400) K/uL MPV (7.4-10.4) fL Immature Gran % (Auto) % Neut % (Auto) % Lymph % (Auto) % [place] % (Auto) % Eos % (Auto) % Baso % (Auto) % Immature Gran # (Auto) (0.00-0.02) K/uL Neut # (Auto) (1.4-6.5) K/uL Lymph # (Auto) (1.2-3.4) K/uL [place] # (Auto) (0.11-0.59) K/uL Eos # (Auto) (0-0.5) K/uL Baso # (Auto) (0-0.2) K/uL Absolute Nucleated RBC (0-0) K/uL Nucleated RBC % (auto) % PT 10.1 INR 1.0 APTT < 20.0 L PTT Ratio < 0.8 Sodium (136-145) mmol/L Potassium (3.5-5.1) mmol/L Chloride (98-107) mmol/L Carbon Dioxide (21-32) mmol/L Anion Gap (3-11) BUN (7-18) mg/dl Creatinine (0.6-1.2) mg/dl Est Cr Clr Drug Dosing Est GFR ( Amer) Est GFR (Non-Af Amer) BUN/Creatinine Ratio (10-20) Glucose (70-99) mg/dl POC Lactic Acid Jesus (0.90-1.70) mmol/L Calcium (8.5-10.1) mg/dl Total Bilirubin (0.2-1) mg/dl AST (15-37) U/L ALT (12-78) U/L Alkaline Phosphatase (45-117) U/L Total Protein (6.4-8.2) gm/dl Albumin (3.4-5.0) gm/dl Globulin (2.5-4.0) gm/dl Albumin/Globulin Ratio (0.9-2) Urine Color Urine Appearance (Clear) Urine pH (4.5-7.5) Ur Specific [place] (1.000-1.030) Urine Protein (Negative) Urine Glucose (UA) (Negative) Urine Ketones (Negative) Urine Blood (Negative) Urine Nitrite (Negative) Urine Bilirubin (Negative) Urine Urobilinogen (Negative) Ur Leukocyte Esterase (Negative) Urine WBC (Auto) (0-5) /hpf Urine RBC (Auto) (0-4) /hpf U Hyaline Cast (Auto) (0-5) /lpf U Epithel Cells (Auto) (0-5) /lpf Urine Bacteria (Auto) (Negative) Ur Renal Epithelial Cell Influenza Type A Ag (Neg) Influenza Type B Ag (Neg) Imaging Data Radiologist's Impression: Radiology results as stated below per my review and the radiologist's interpretation: SINGLE VIEW CHEST CLINICAL HISTORY: Sepsis. FINDINGS: An AP, portable, upright chest radiograph is compared to study dated 11/21/2018 and correlated with chest CT dated 09/09/2018. The examination is degraded by portable technique and patient rotation. A left subclavian central venous infusion port is unchanged in position. The heart is enlarged and there is atherosclerotic calcification of the thoracic aorta. There is evidence of congestive failure. Trace pleural effusions are suspected and there is bibasilar atelectasis. No pneumothorax is seen. The skeletal structures are osteopenic. The bony thorax is grossly intact. Degenerative change and scoliosis are noted in the thoracic spine. IMPRESSION: Cardiomegaly with evidence of congestive failure. Electronically signed by: Jayy Eduardo M.D. 12/28/2018 9:[address] SCAN OF THE ABDOMEN AND PELVIS WITHOUT IV CONTRAST CLINICAL HISTORY: Generalized abdominal pain. COMPARISON STUDY: Abdominal CT dated 05/05/2017. TECHNIQUE: CT scan of the abdomen and pelvis is performed from the lung bases to the proximal femora. Images are reviewed in the axial, sagittal, and coronal planes. IV contrast was not administered for this examination as per the referring clinician. Note that the examination was performed in significantly suboptimal fashion without oral and IV contrast. The examination is also compromised by streak and motion artifact. A dose lowering technique was utilized adhering to the principles of ALARA. CT DOSE: 1981.72 mGy.cm FINDINGS: Lung bases: The heart is enlarged without pericardial effusion. The tip of a central venous infusion port terminates at the cavoatrial junction. The coronary arteries are densely calcified. There is a small hiatal hernia. There is no airspace consolidation or pleural effusion. Bibasilar scarring/atelectasis is noted. Postoperative change is suggested at the left lung base. Liver: The unenhanced liver is enlarged, measuring 19 cm in length. There is evidence of hepatic steatosis, with fatty sparing seen adjacent to gallbladder fossa. There is no intrahepatic biliary ductal dilatation. Gallbladder: Unremarkable. Spleen: Normal in size and attenuation. There are numerous calcified splenic granulomas. Pancreas: The unenhanced pancreas is atrophic and grossly unremarkable. Adrenal glands: A 2 cm left adrenal adenoma is unchanged. The right adrenal gland is normal in appearance. Kidneys: The unenhanced kidneys are atrophic. There is moderate right hydroureteronephrosis. The right ureter is distended to the level of the bladder. No hydronephrosis is seen on the left. There is a punctate nonobstructing calculus in the left upper pole. A 12 mm exophytic cyst arises from the left lower pole. Abdominal vasculature: The abdominal aorta is normal in course and caliber noting advanced atherosclerotic calcification. Bowel: There is moderate colonic fecal retention. No bowel obstruction is seen. Colonic lipomas are suggested. The appendix is well-visualized and normal. Peritoneum: There is laxity of the ventral abdominal wall with protrusion of abdominal contents. There is no intraperitoneal free air or abdominal ascites. Lymphadenopathy: None. Pelvic viscera: The bladder is distended but otherwise normal in appearance. The uterus is atrophic versus surgically absent. No adnexal lesion is seen. Skeletal structures: The skeletal structures are osteopenic. There is moderate lumbosacral spondylosis. No lytic or blastic lesions are seen. IMPRESSION: 1. Significantly suboptimal examination without oral and IV contrast. The examination is also compromised by streak and motion artifact. 2. There is moderate right hydroureteronephrosis. The ureter is dilated to the level of the significantly distended bladder. No clear cause of obstruction is seen, and this is new from the 05/05/2017 examination. 3. There is no left-sided hydronephrosis. 4. Cardiomegaly. 5. Colonic fecal retention. 6. Hepatomegaly and hepatic steatosis. 7. There is a punctate nonobstructing left renal calculus. 8. Additional findings as above. Electronically signed by: Jayy Eduardo M.D. 12/28/2018 11:14 PM ECG Data Attestation: I personally reviewed and interpreted this ECG as follows: Indication: altered mental status Rate (beats per minute): 113 Rhythm: sinus tachycardia Findings: no PVC and no ST elevation Blood Pressure Blood Pressure Findings: Normal blood pressure Blood Pressure Disposition: further management by hospitalist NITA Ernst I did perform a limited focused review of portions of the patient's old chart on the electronic medical record. The patient has had no recent pertinent visits to this hospital. I did evaluate the patient as noted above. The patient is presenting with change in mental status with decreased responsiveness. She also has a fever with vomiting and diarrhea. IV access was established. The patient was placed on a continuous monitor technician. I did order and personally review the patient's 12-lead EKG and chest x-ray as described above. Twelve-lead EKG shows sinus tachycardia without acute ischemia. Her chest x-ray does not show signs and rapid flu testing is negative. Blood cultures were obtained. I did order and review the patient's blood work as noted in the electronic medical record. Her white count is elevated. Lactic acid is over 4. I did order a urine analysis which shows obvious infection. I did treat her with Zosyn IV. She was given Tylenol IV for her fever. She was also treated with normal saline IV. I did order a CT of the abdomen and pelvis. I did review the images myself as well as the radiology report as described above. She has right-sided moderate hydroureteronephrosis down to the bladder. I did discuss this with the urologist on-call, Dr. Pretty. She do not feel any acute intervention was indicated. I did order a Jacobsen catheter which drained almost a liter of urine. I did discuss the test results with the patient's family. I did discuss the case with the hospitalist and case assistant. Impression & Plan Sepsis, UTI (urinary tract infection), Vomiting and diarrhea, Acute dehydration, Hydroureteronephrosis Critical Care Time I have personally spent 35 minutes of critical care time in the direct management of this patient. This includes bedside care, interpretation of diagnostic studies and testing, discussion with consultants, patient, and family members, and other required patient management activities. These 35 minutes is in excess of all separately billable procedures. Critical Care Time: Yes Total Critical Care Time: 35 Discharge Plan Visit Data Chief Complaint: Illness Stated Complaint: ILLNESS, VOMITING DIARRHEA, AMS ED Provider: Ben Mclaughlin Discharge Problem: Sepsis, UTI (urinary tract infection), Vomiting and diarrhea, Acute dehydration, Hydroureteronephrosis Patient Disposition: Being Evaluated by Hospitalist Forms Stand Alone Forms: My [facility] Prescriptions Prescriptions: No Action metformin 500 mg Tablet 1,000 mg PO BID RF: 0 lisinopril [Zestril] 20 mg Tablet 40 mg PO DAILY RF: 0 aspirin [Aspir-81] 81 mg Tablet,Delayed Release (Dr/Ec) 81 mg PO DAILY RF: 0 meloxicam [Mobic] 7.5 mg Tablet 7.5 mg PO BID PRN (Reason: Pain) RF: 0 allopurinol 300 mg Tablet 300 mg PO QAM RF: 0 Cholestyramine Light 4 gram Powder In Packet 4 g PO HS RF: 0 Levemir FlexTouch U-100 Insuln 100 unit/mL (3 mL) Insulin Pen 60 unit SUBCUT DAILY RF: 0 fluticasone propion-salmeterol [Advair Diskus] 250-50 mcg/dose blister with device 1 inha INH BID Qty: 60 RF: 3 acetaminophen [Tylenol] 325 mg Tablet 650 mg PO TID PRN (Reason: Pain) RF: 0 acetaminophen [Tylenol] 325 mg Tablet 650 mg PO Q6H PRN (Reason: Fever Or Pain) RF: 0 magnesium hydroxide [Milk of Magnesia] 400 mg/5 mL Suspension 30 ml PO UD PRN (Reason: Constipation) RF: 0 bisacodyl [Dulcolax (bisacodyl)] 10 mg Suppository 10 mg [place] UD PRN (Reason: Constipation) RF: 0 guar gum Powder 4 g miscellaneous Q12 RF: 0 nystatin 100,000 unit/gram Powder 1 applic TOPICAL BID RF: 0 insulin lispro [Humalog U-100 Insulin] 100 unit/mL Solution 1 sliding scale dose SUBCUT USEASDIRECTD RF: 0 cholecalciferol (vitamin D3) [Vitamin D3] 2,000 unit Tablet 2,000 unit PO DAILY RF: 0 metoprolol succinate 100 mg tablet extended release 24 hr 100 mg PO DAILY RF: 0 diclofenac sodium [Voltaren] 1 % gel 4 g topical DAILY RF: 0 Referrals Referrals: Fredrick Oliver [Primary Care Provider] - Discharge Problem: Sepsis Qualifiers: Sepsis type: sepsis due to unspecified organism Qualified Code(s): A41.9 - Sepsis, unspecified organism UTI (urinary tract infection) Qualifiers: Urinary tract infection type: site unspecified Hematuria presence: without hematuria Qualified Code(s): N39.0 - Urinary tract infection, site not specified The scribe's documentation has been prepared under my direction and personally reviewed by me in its entirety. I confirm that the note above accurately reflect s all work, treatment, procedures, and medical decision making performed by me.
--- NOTE | 2018-12-29 00:37 | History & Physical Report ---
Date of Service December 29, 2018 Assessment & Plan (1) Sepsis: Sepsis/urinary tract infection/right hydroureteronephrosis/bladder cancer-- Likely origin of symptoms is obstruction of right ureter at its entry into the bladder. Patient did have Cantu catheter placed with relatively quick outflow of over 1000 cc of urine. Patient has had bladder surgery in the past, and follows with Dr. Delatorre from urology. NPO except essential medications. Zosyn 4.5 g IV every 8 hours. Zofran 4 mg IV every 6 hours as needed. Pantoprazole 40 mg IV daily. NSS at 100 mils per hour, with fluid boluses as needed. Morphine sulfate 2 mg IV every 2 hours as needed. Consult urology Dr. Delatorre. Present on Admission?: Yes (2) UTI (urinary tract infection): Likely secondary to obstruction above as noted. Zosyn IV as noted. Follow urine culture and sensitivities. Present on Admission?: Yes (3) Hydroureteronephrosis: As above. Present on Admission?: Yes (4) Bladder cancer: History of bladder cancer with bladder surgery. Would be concerned regarding the possibility of recurrence leading to obstruction. Her urologist Dr. Delatorre will be consulted. Present on Admission?: Yes (5) Hyperlipidemia: Hold cholestyramine while n.p.o. Present on Admission?: Yes (6) Hypertension: Hold metoprolol succinate 100 mg p.o. daily, lisinopril 40 mg p.o. daily and aspirin 81 mg p.o. daily while n.p.o. Patient relatively hypotensive at this time. Present on Admission?: Yes (7) Diabetes: Hold her Levemir 60 units subcu daily. Placed on Accu-Cheks before meals and at bedtime with NovoLog coverage for scale. Present on Admission?: Yes (8) Gout: Hold allopurinol n.p.o. Present on Admission?: Yes History of Present Illness Chief Complaint: The patient presents to the emergency department with complaint to the ED staff of abdominal discomfort with nausea and vomiting and diarrhea. Primary Care Provider: [facility] The patient is a 78-year-old female resident of [facility] who was sent to the emergency department due to concerns regarding altered mental status, nausea, vomiting and diarrhea with fevers and chills. At the time of my examination, the patient was having complaint of moderate back pain she reports has been worsening over the past week. Workup in the emergency department, included a CT of the abdomen and pelvis, which showed moderate right hydroureteronephrosis, with the ureter being dilated its entire length from the bladder to the kidney. Allergies Allergy/AdvReac Type Severity Reaction Status Date / Time Fibrate Anti-Lipidemics Allergy Unknown SEVERE LEG Verified 12/28/18 23:17 PAIN/CRAMPING latex Allergy Unknown SKIN Verified 12/28/18 23:17 TEARING Mlebpzb-Ntd-Dut Reductase AdvReac Unknown SEVERE LEG Verified 12/28/18 23:17 Inhibitor PAIN/CRAMPING Unclassified Drugs Allergy Unknown CAT GUT Uncoded 12/28/18 23:17 SUTURES Home Medications Home Medications Medication Instructions Recorded Confirmed Type Cholestyramine Light 4 g PO HS 09/09/18 12/28/18 History Levemir FlexTouch U-100 Insuln 60 unit SUBCUT DAILY 09/09/18 12/28/18 History allopurinol 300 mg PO QAM 09/09/18 12/28/18 History aspirin [Aspir-81] 81 mg PO DAILY 09/09/18 12/28/18 History lisinopril [Zestril] 40 mg PO DAILY 09/09/18 12/28/18 History meloxicam [Mobic] 7.5 mg PO BID PRN 09/09/18 12/28/18 History metformin 1,000 mg PO BID 09/09/18 12/28/18 History fluticasone propion-salmeterol 1 inha INH BID #60 ea 09/12/18 12/28/18 Rx [Advair Diskus] acetaminophen [Tylenol] 650 mg PO Q6H PRN 12/28/18 12/28/18 History acetaminophen [Tylenol] 650 mg PO TID PRN 12/28/18 12/28/18 History bisacodyl [Dulcolax (bisacodyl)] 10 mg [place] UD PRN 12/28/18 12/28/18 History cholecalciferol (vitamin D3) 2,000 unit PO DAILY 12/28/18 12/28/18 History [Vitamin D3] diclofenac sodium [Voltaren] 4 g TOPICAL DAILY 12/28/18 12/28/18 History guar gum 4 g MISCELLANEOUS Q12 12/28/18 12/28/18 History insulin lispro [Humalog U-100 1 sliding scale dose SUBCUT 12/28/18 12/28/18 History Insulin] USEASDIRECTD magnesium hydroxide [Milk of 30 ml PO UD PRN 12/28/18 12/28/18 History Magnesia] metoprolol succinate 100 mg PO DAILY 12/28/18 12/28/18 History nystatin 1 applic TOPICAL BID 12/28/18 12/28/18 History Past Med/Surg History Medical History Acute on chronic diastolic heart failure Hypertensive urgency Chronic diarrhea Gout Chronic diastolic heart failure Obesity Nephrolithiasis Osteoarthritis Anemia Bladder cancer (Acute) Acute renal failure (Resolved) Hypertension (Chronic) Hyperlipidemia (Chronic) Diabetes (Chronic) Breast cancer Breast cancer of lower-outer quadrant of left female breast (Acute 11/02/15) "High-grade transitional cell carcinoma bladder, stage [id number] Status post combined radiation and chemotherapy, radiation completed 10/18/2005 received 6660 cGy. 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 Pathologic stage pTIa NXM0 Self detected right breast mass, status post right partial mastectomy and sentinel lymph node biopsy. 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 Pathologic stage pTIa NXM0 Self detected right breast mass, status post right partial mastectomy and sentinel lymph node biopsy. 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, progesterone receptor positive, HER-2/eris negative Status post lumpectomy and sentinel lymph node biopsy with no residual tumor 12/12/2015" TIA (transient ischemic attack) (Acute) Surgical History History of bladder surgery History of lobectomy of lung History of lumpectomy Family History Other Family history non-contributory Social History Preferred Language: Turkmen Communication Ability: Effective Child Psychiatrist Required: No Beliefs That Will Affect Care: None Current Living Situation: Prison Current Living Situation Comment: [facility] Other Information That Helps Us Care for You: No Feels Safe at Home: Yes Safety Concerns: Feels Safe At This Time Smoking Status: Former smoker Hx Alcohol Use: No Hx Substance Use: No Review of Systems The patient denies chest pain, palpitations, shortness of breath, dyspnea on exertion, cough, lower extremity swelling, sore throat, sweats, constipation, abdominal pain, pelvic pain, blood in urine or stool, dysuria, urinary frequency or urgency, lightheadedness, dizziness, headache, loss of consciousness, rash, abnormal bruising or bleeding, imbalance, focal or generalized weakness, numbness or tingling in arms or legs, generalized arthralgias or myalgias, neck pain, or night sweats. The review of systems is otherwise negative other than for that already noted above, and at least 10 systems have been reviewed. Physical Exam Vital Signs (Past 24 Hours): Last Vital Signs Temp 38.7 C H 12/28/18 22:17 Pulse 104 H 12/29/18 00:35 Resp 25 H 12/29/18 00:35 BP 114/72 12/29/18 00:35 Pulse Ox 95 12/29/18 00:35 Physical Exam: The patient is awake, alert and oriented 3, normocephalic and atraumatic, lying in bed and in moderate distress secondary to right-sided back pain. HEENT--PERRL, EOMI, mucous membranes and oropharynx dry. Neck--supple. No JVD. No bruits. Thyroid normal, trachea midline, no adenopathy. Heart--normal S1 and S2. No murmurs, rubs or gallops. Lungs--clear bilaterally, no respiratory distress, no accessory muscle use. Abdomen/back--normal bowel sounds and soft. Nondistended. Moderately severe right flank pain with applied pressure. Extremities--no cyanosis or clubbing. No edema. There are good distal pulses b/l. Dermatologic--normal skin turgor, normal color, no abnormal lymph nodes, no rash. Neurologic--cranial nerves II through XII grossly intact. Rheumatologic--normal range of motion. Psychiatric--normal affect. Results & Data Laboratory Results Laboratory Results WBC 14.95 K/uL (4.8-10.8) H 12/28/18 21:10 RBC 4.06 M/uL (4.2-5.4) L 12/28/18 21:10 Hgb 13.6 g/dL (12.0-16.0) 12/28/18 21:10 Hct 41.4 % (37-47) 12/28/18 21:10 MCV 102.0 fL (80-100) H 12/28/18 21:10 MCH 33.5 pg (25-34) 12/28/18 21:10 MCHC 32.9 g/dL (32-36) 12/28/18 21:10 RDW Std Deviation 54.4 fL (36.4-46.3) H 12/28/18 21:10 RDW Coeff of Marisol 14.7 % (11.5-14.5) H 12/28/18 21:10 Plt Count 292 K/uL (130-400) 12/28/18 21:10 MPV 11.3 fL (7.4-10.4) H 12/28/18 21:10 Immature Gran % (Auto) 0.9 % 12/28/18 21:10 Neut % (Auto) 93.4 % 12/28/18 21:10 Lymph % (Auto) 1.8 % 12/28/18 21:10 [place] % (Auto) 3.7 % 12/28/18 21:10 Eos % (Auto) 0.1 % 12/28/18 21:10 Baso % (Auto) 0.1 % 12/28/18 21:10 Immature Gran # (Auto) 0.14 K/uL (0.00-0.02) H 12/28/18 21:10 Neut # (Auto) 13.94 K/uL (1.4-6.5) H 12/28/18 21:10 Lymph # (Auto) 0.27 K/uL (1.2-3.4) L 12/28/18 21:10 [place] # (Auto) 0.56 K/uL (0.11-0.59) 12/28/18 21:10 Eos # (Auto) 0.02 K/uL (0-0.5) 12/28/18 21:10 Baso # (Auto) 0.02 K/uL (0-0.2) 12/28/18 21:10 Absolute Nucleated RBC 0.02 K/uL (0-0) H 12/28/18 21:10 Nucleated RBC % (auto) 0.2 % 12/28/18 21:10 PT 10.1 Seconds (9.0-12.0) 12/28/18 22:13 INR 1.0 (0.9-1.1) 12/28/18 22:13 APTT < 20.0 Seconds (21.0-31.0) L 12/28/18 22:13 PTT Ratio < 0.8 12/28/18 22:13 Sodium 139 mmol/L (136-145) 12/28/18 21:10 Potassium 4.1 mmol/L (3.5-5.1) 12/28/18 21:10 Chloride 107 mmol/L (98-107) 12/28/18 21:10 Carbon Dioxide 25 mmol/L (21-32) 12/28/18 21:10 Anion Gap 7.0 (3-11) 12/28/18 21:10 BUN 27 mg/dl (7-18) H 12/28/18 21:10 Creatinine 1.21 mg/dl (0.6-1.2) H 12/28/18 21:10 Est Cr Clr Drug Dosing Not Reportable 12/28/18 21:10 Est GFR ( Amer) 49.3 12/28/18 21:10 Est GFR (Non-Af Amer) 42.5 12/28/18 21:10 BUN/Creatinine Ratio 22.1 (10-20) H 12/28/18 21:10 Glucose 197 mg/dl (70-99) H 12/28/18 21:10 POC Glucose 212 (70-99) H 12/29/18 02:20 POC Lactic Acid Jesus 4.33 mmol/L (0.90-1.70) H 12/28/18 21:24 Calcium 9.1 mg/dl (8.5-10.1) 12/28/18 21:10 Total Bilirubin 0.6 mg/dl (0.2-1) 12/28/18 21:10 AST 13 U/L (15-37) L 12/28/18 21:10 ALT 22 U/L (12-78) 12/28/18 21:10 Alkaline Phosphatase 105 U/L (45-117) 12/28/18 21:10 Total Protein 7.0 gm/dl (6.4-8.2) 12/28/18 21:10 Albumin 3.0 gm/dl (3.4-5.0) L 12/28/18 21:10 Globulin 4.0 gm/dl (2.5-4.0) 12/28/18 21:10 Albumin/Globulin Ratio 0.8 (0.9-2) L 12/28/18 21:10 Urine Color Yellow 12/28/18 21:52 Urine Appearance Cloudy (Clear) H 12/28/18 21:52 Urine pH 5.0 (4.5-7.5) 12/28/18 21:52 Ur Specific [place] 1.020 (1.000-1.030) 12/28/18 21:52 Urine Protein 2+ (Negative) H 12/28/18 21:52 Urine Glucose (UA) Negative (Negative) 12/28/18 21:52 Urine Ketones Negative (Negative) 12/28/18 21:52 Urine Blood 1+ (Negative) H 12/28/18 21:52 Urine Nitrite Positive (Negative) H 12/28/18 21:52 Urine Bilirubin Negative (Negative) 12/28/18 21:52 Urine Urobilinogen Negative (Negative) 12/28/18 21:52 Ur Leukocyte Esterase 1+ (Negative) H 12/28/18 21:52 Urine WBC (Auto) 10-30 /hpf (0-5) H 12/28/18 21:52 Urine RBC (Auto) 0-4 /hpf (0-4) 12/28/18 21:52 U Hyaline Cast (Auto) 5-10 /lpf (0-5) H 12/28/18 21:52 U Epithel Cells (Auto) >30 /lpf (0-5) H 12/28/18 21:52 Urine Bacteria (Auto) 4+ (Negative) H 12/28/18 21:52 Ur Renal Epithelial Cell Not Reportable 12/28/18 21:52 Influenza Type A Ag Neg for Influ A (Neg) 12/28/18 21:55 Influenza Type B Ag Neg for Influ B (Neg) 12/28/18 21:55 Diagnostic Findings [place], [place] [phone] XRay Report Patient: CHENTE AVITIA Admit Date: 9 MR#: [id number] Address1: [address] [place] [address] Acct ID:[id number] Address2: [facility] Date: 1940 [facility] Zip: [place] [address] Age: 78 Location: ED Sex: F Room/Bed: Att Phy: Diagnosis: ILLNESS, VOMITING DIARR HEA, AMS Pema Phy: [facility] Service Date: 9 Fam Phy: Interpreting Phy: Jayy Caruso Admit Phy: Ordering Phy: Ben Mclaughlin MD cc: SINGLE VIEW CHEST CLINICAL HISTORY: Sepsis. FINDINGS: An AP, portable, upright chest radiograph is compared to study dated 11/21/2018 and correlated with chest CT dated 09/09/2018. The examination is degraded by portable technique and patient rotation. A left subclavian central venous infusion port is unchanged in position. The heart is enlarged and there is atherosclerotic calcification of the thoracic aor ta. There is evidence of congestive failure. Trace pleural effusions are suspected and there is bibasilar atelectasis. No pneumothorax is seen. The skeletal structures are osteopenic. The bony thorax is grossly intact. Degenerative change and scoliosis are noted in the thoracic spine. IMPRESSION: Cardiomegaly with evidence of congestive failure. Electronically signed by: Jayy Eduardo M.D. 12/28/2018 9:42 PM Dictated: 12/28/182140 Transcribed: 12/28/182140 [place], [place] [phone] CT Scan Report Patient: CHENTE AVITIA Admit Date: 09/09/18 MR#: [id number] Address1: [address] Acct ID:[id number] Address2: Date: 1940 [facility] Zip[facility] [address] Age: 78 Location: ED Sex: F Room/Bed: Att Phy: Diagnosis: INCREASE BLOOD PRESSURE Pema Phy: Dino Maguire M.D. Service Date: 09/09/18 Fam Phy: Interpreting Phy: Fortunato Brown MD Admit Phy: Ordering Phy: Teo Butler M.D. cc: CT ANGIOGRAM OF THE CHEST CLINICAL HISTORY: Atypical chest pain. Hypoxia. Elevated d-dimer. Possible pulmonary embolism. COMPARISON STUDY: Chest CT dated 05/05/2017 TECHNIQUE: Following the IV administration of 120 mL of Optiray-320, CT angiogram of the thorax was performed from the thoracic inlet to the lung bases utilizing the pulmonary embolus protocol. Images are reviewed in the axial, sagittal, and coronal planes. IV contrast was administered without complication. MIP imaging was performed. A dose lowering technique was utilized adhering to the principles of ALARA. CT DOSE: 643.95 mGycm FINDINGS: A left lobe thyroid goiter remain similar to the preceding study. There are minimally enlarged mediastinal lymph nodes, unchanged from the preceding examination. There is mild dilatation of the ascending thoracic aorta which measures 37 mm. No intimal flaps are visualized. The heart is mildly enlarged. There are coronary artery calcifications. There is no significant pericardial effusion. The study is mildly compromised due to patient motion artifact. There are no findings suspicious for acute pulmonary emboli. Sensitivity for detection of subsegmental emboli is diminished. There are small bilateral pleural effusions. There is pulmonary emphysema. There is no focal pulmonary consolidation. There are minor dependent atelectatic changes. Next lytic and sclerotic lesions involving the T3 vertebral body, and T4 lytic tumor body lesion remain unchanged the prior study. 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 IMPRESSION: 1. Examination mildly compromised due to respiratory motion artifact 2. Pulmonary emphysema 3. Small bilateral pleural effusions and minimal dependent atelectatic change 4. No evidence of acute pulmonary embolism. Given the technical limitations of the examination, if pulmonary embolism remains a strong concern, correlation with leg ultrasonography should be obtained 5. Mild mediastinal lymphadenopathy, unchanged the preceding study 6. Left lobe thyroid goiter 7. Stable T3 and T4 vertebral body lesions Electronically signed by: Fortunato Brown M.D. 09/09/2018 1:01 PM Dictated: 09/09/18 1250 Transcribed: 09/09/18 1250 Code Status & VTE Plan Code Status Full code VTE Prophylaxis Plan VTE Prophylaxis will be ordered: Yes (1) UTI (urinary tract infection) Hematuria presence: without hematuria Urinary tract infection type: site unspecified Qualified Code(s): N39.0 - Urinary tract infection, site not specified (2) Hyperlipidemia Hyperlipidemia type: unspecified Qualified Code(s): E78.5 - Hyperlipidemia, unspecified (3) Hypertension Hypertension type: essential hypertension Qualified Code(s): I10 - Essential (primary) hypertension (4) Diabetes Diabetes mellitus type: type 2 Diabetes mellitus long-term insulin use: with exterminator termite use Diabetes mellitus complication status: without complication Qualified Code(s): E11.9 - Type 2 diabetes mellitus without complications; Z79.4 - terminal makeup operator (current) use of insulin (5) Sepsis Sepsis type: sepsis due to unspecified organism Qualified Code(s): A41.9 - Sepsis, unspecified organism
[2018-12-29] MEDS ORDERED: fentaNYL citrate 100 MCG/2 ML VIAL IV ONE ×2 (00:53)
[2018-12-29] MEDS ORDERED: fentaNYL citrate 100 MCG/2 ML VIAL ONE (00:59)
[2018-12-29] MEDS ORDERED: MoRPHine SULFATE 2 MG/ML CARP IV STA (01:25)
[2018-12-29] MEDS ORDERED: PIPERACILL/TAZOBAC CONSULT ACTIVE PRN (02:05)
[2018-12-29] MEDS ORDERED: MAGNESIUM HYDROXIDE SUSP 30 ML UDC PO PRN (02:05)
[2018-12-29] MEDS ORDERED: CARBOHYDRATES FOR HYPOGLYCEMIA PO PRN (02:05)
[2018-12-29] MEDS ORDERED: GLUCAGON FOR INJ 1 MG VIAL SQ PRN (02:05)
[2018-12-29] MEDS ORDERED: GLUCOSE 10 TABS/TUBE PO PRN (02:05)
[2018-12-29] MEDS ORDERED: ACETAMINOPHEN 325 MG TAB PO PRN (02:05)
[2018-12-29] MEDS ORDERED: GLUCOSE 40% GEL 15 GM TUBE PO PRN (02:05)
[2018-12-29] MEDS ORDERED: DEXTROSE 50% 50 ML SYRINGE IV PRN (02:05)
[2018-12-29] MEDS ORDERED: ONDANSETRON INJ 2 MG/ML 2 ML VIAL IV PRN (02:05)
[2018-12-29] MEDS ORDERED: BISACODYL 10 MG SUPP PR PRN (02:05)
[2018-12-29] MEDS ORDERED: SODIUM CHLORIDE 0.9% 1000ML 500 ML IV ONE (04:04)
[2018-12-29] MEDS: PIPERACILLIN/TAZOBACTAM 4.5 GM in DEXTROSE 5% 100 ML IV SCH ×2 (04:34→11:30)
[2018-12-29] MEDS: ALBUMIN 25% 50 ML IV SCH ×2 (04:34→05:55)
[2018-12-29] MEDS: SODIUM CHLORIDE 0.9% 1000ML 1,000 ML IV SCH ×2 (07:44→16:05)
--- NOTE | 2018-12-29 07:53 | Urology Consultation ---
Date of Consultation December 29, 2018 Assessment & Plan (1) Sepsis: (2) UTI (urinary tract infection): (3) Hydroureteronephrosis: 78yo with AMS, UTI, R hydronephrosis with ASHER, Hx PUNLUP with inconsistent follow-up. CT - mild/mod R hydro without stone or obstructive cause - likely as result of ASHER. Maintain jacobsen catheter - allow for maximal drainage. UA nitrat pos, suspicious for UTI however UC&S prelim no growth Continue broad spectrum abx. Cr elevated - avoid nephrotoxic agents, monitor I&Os. Continue IVFs. Careplan discussed with Dr. Hester and Dr. Garcia. No surgical intervention indicated at this time. Thank you for the consultation, will continue to monitor closely with primary service. History of Present Illness Reason for Consultation: R hydro, ASHER, UTI Requesting Physician: Dr. Reyes Attending Physician: Agustín Reyes MD History of Present Illness 78yo F with extensive PMHx including bladder ca, s/p radiation and chemo for PUNLMP. Inconsistently following with surveillance cystoscopy, most recently seen in 2017. Cysto at that time revealed 5 areas of fine papilllary superficial recurrence at that time. Pt is a resident at [facility], presents to [facility] ED last evening d/t AMS, +N/V, +f/c, + back pain x1 week. Pt found to be septic with have nitrate + UA, Tmax 38.7C at 2200am. UR with jacobsen drained >1,000cc in ED. UC&S prelim no growth, BC pending. Cr elevated to 1.40. CT imaging personally reviewed by myself and Dr. Hester- mild R hydroureteronephosis, likely as result of ASHER. No obs stone noted. Pt confused and incooperative at time of evaluation. (Phlebotomy attempting to draw labs). Oriented to self, disoriented to place or time. Unable to answer any questions appropriately, however did deny pain for me. Oxymask intact. Allergies Allergy/AdvReac Type Severity Reaction Status Date / Time Fibrate Anti-Lipidemics Allergy Unknown SEVERE LEG Verified 12/28/18 23:17 PAIN/CRAMPING latex Allergy Unknown SKIN Verified 12/28/18 23:17 TEARING Zupjwws-Goc-Fzf Reductase AdvReac Unknown SEVERE LEG Verified 12/28/18 23:17 Inhibitor PAIN/CRAMPING Unclassified Drugs Allergy Unknown CAT GUT Uncoded 12/28/18 23:17 SUTURES Home Medications Home Medications Medication Instructions Recorded Confirmed Type Cholestyramine Light 4 g PO HS 09/09/18 12/28/18 History allopurinol 300 mg PO QAM 09/09/18 12/28/18 History aspirin [Aspir-81] 81 mg PO DAILY 09/09/18 12/28/18 History lisinopril [Zestril] 40 mg PO DAILY 09/09/18 12/28/18 History meloxicam [Mobic] 7.5 mg PO BID PRN 09/09/18 12/28/18 History metformin 1,000 mg PO BID 09/09/18 12/28/18 History fluticasone propion-salmeterol 1 inha INH BID #60 ea 09/12/18 12/28/18 Rx [Advair Diskus] acetaminophen [Tylenol] 650 mg PO Q6H PRN 12/28/18 12/28/18 History acetaminophen [Tylenol] 650 mg PO TID PRN 12/28/18 12/28/18 History bisacodyl [Dulcolax (bisacodyl)] 10 mg MN UD PRN 12/28/18 12/28/18 History cholecalciferol (vitamin D3) 2,000 unit PO DAILY 12/28/18 12/28/18 History [Vitamin D3] diclofenac sodium [Voltaren] 4 g TOPICAL DAILY 12/28/18 12/28/18 History guar gum 4 g MISCELLANEOUS Q12 12/28/18 12/28/18 History insulin lispro [Humalog U-100 1 sliding scale dose SUBCUT 12/28/18 12/28/18 History Insulin] USEASDIRECTD magnesium hydroxide [Milk of 30 ml PO UD PRN 12/28/18 12/28/18 History Magnesia] metoprolol succinate 100 mg PO DAILY 12/28/18 12/28/18 History nystatin 1 applic TOPICAL BID 12/28/18 12/28/18 History insulin glargine [Lantus U-100 60 units SUBCUT DAILY 12/29/18 12/29/18 History Insulin] Patient History Medical History Acute on chronic diastolic heart failure Hypertensive urgency Chronic diarrhea Gout Chronic diastolic heart failure Obesity Nephrolithiasis Osteoarthritis Anemia Bladder cancer (Acute) Acute renal failure (Resolved) Hypertension (Chronic) Hyperlipidemia (Chronic) Diabetes (Chronic) Breast cancer Breast cancer of lower-outer quadrant of left female breast (Acute 11/02/15) "High-grade transitional cell carcinoma bladder, stage [id number] Status post combined radiation and chemotherapy, radiation completed 10/18/2005 received 6660 cGy. 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 Pathologic stage pTIa NXM0 Self detected right breast mass, status post right partial mastectomy and sentinel lymph node biopsy. 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 Pathologic stage pTIa NXM0 Self detected right breast mass, status post right partial mastectomy and sentinel lymph node biopsy. 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, progesterone receptor positive, HER-2/eris negative Status post lumpectomy and sentinel lymph node biopsy with no residual tumor 12/12/2015" TIA (transient ischemic attack) (Acute) Surgical History History of bladder surgery History of lobectomy of lung History of lumpectomy Family History Other Family history non-contributory Social History Preferred Language: Scottish Communication Ability: Effective 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 Beliefs That Will Affect Care: None Current Living Situation: Shelter Current Living Situation Comment: [facility] Other Information That Helps Us Care for You: No Feels Safe at Home: Yes Safety Concerns: Feels Safe At This Time Smoking Status: Former smoker Hx Alcohol Use: No Hx Substance Use: No Review of Systems ROS inappropriate Physical Exam Vital Signs (Past 24 Hours): Last Vital Signs Temp 37.2 C 12/29/18 07:07 Pulse 104 H 12/29/18 07:07 Resp 20 12/29/18 07:07 BP 133/62 12/29/18 07:07 Pulse Ox 91 12/29/18 07:07 Constitutional: + obese and + altered mental status; + uncooperative Eyes: no nystagmus ENMT: Ears: no hearing impairment and no external ear abnormality Neck: trachea midline Respiratory: no respiratory distress and does not use accessory muscles some work of breathing noted but able to answer yes/no questions. Cardiovascular: Vessels: no JVD Gastrointestinal (Abdomen): Inspection/Auscultation: abdomen not distended and no abdominal edema Percussion/Palpation: abdomen soft Skin: no rashes, warm and dry (in exposed areas) Neurologic: + confused Motor/Sensory: no tremor Psychiatric: Orientation: alert; + not oriented x 3 Eye Contact: + poor eye contact Affect: + flat affect Thought Process: + thought process not goal directed, + thought process not linear or logical and + thought process not clear or coherent Genitourinary: jacobsen catheter draining cloudy, demetris urine Lymphatic: no lymphadenopathy Results & Data Laboratory Results Laboratory Results - last 48 hr 12/28/18 12/28/18 12/28/18 21:10 21:10 21:10 WBC 14.95 H RBC 4.06 L Hgb 13.6 Hct 41.4 MCV 102.0 H MCH 33.5 MCHC 32.9 RDW Std Deviation 54.4 H RDW Coeff of Marisol 14.7 H Plt Count 292 MPV 11.3 H Immature Gran % (Auto) 0.9 Neut % (Auto) 93.4 Lymph % (Auto) 1.8 [place] % (Auto) 3.7 Eos % (Auto) 0.1 Baso % (Auto) 0.1 Immature Gran # (Auto) 0.14 H Neut # (Auto) 13.94 H Lymph # (Auto) 0.27 L [place] # (Auto) 0.56 Eos # (Auto) 0.02 Baso # (Auto) 0.02 Absolute Nucleated RBC 0.02 H Nucleated RBC % (auto) 0.2 PT Cancelled INR Cancelled APTT Cancelled PTT Ratio Cancelled Sodium 139 Potassium 4.1 Chloride 107 Carbon Dioxide 25 Anion Gap 7.0 BUN 27 H Creatinine 1.21 H Est Cr Clr Drug Dosing Not Reportable Est GFR ( Amer) 49.3 Est GFR (Non-Af Amer) 42.5 BUN/Creatinine Ratio 22.1 H Glucose 197 H POC Glucose POC Lactic Acid Jesus Lactate Calcium 9.1 Total Bilirubin 0.6 AST 13 L ALT 22 Alkaline Phosphatase 105 Total Protein 7.0 Albumin 3.0 L Globulin 4.0 Albumin/Globulin Ratio 0.8 L Urine Color Urine Appearance Urine pH Ur Specific [place] Urine Protein Urine Glucose (UA) Urine Ketones Urine Blood Urine Nitrite Urine Bilirubin Urine Urobilinogen Ur Leukocyte Esterase Urine WBC (Auto) Urine RBC (Auto) U Hyaline Cast (Auto) U Epithel Cells (Auto) Urine Bacteria (Auto) Ur Renal Epithelial Cell Nasal Screen MRSA (PCR) Influenza Type A Ag Influenza Type B Ag 12/28/18 12/28/18 12/28/18 21:24 21:52 21:55 WBC RBC Hgb Hct MCV MCH MCHC RDW Std Deviation RDW Coeff of Marisol Plt Count MPV Immature Gran % (Auto) Neut % (Auto) Lymph % (Auto) [place] % (Auto) Eos % (Auto) Baso % (Auto) Immature Gran # (Auto) Neut # (Auto) Lymph # (Auto) [place] # (Auto) Eos # (Auto) Baso # (Auto) Absolute Nucleated RBC Nucleated RBC % (auto) PT INR APTT PTT Ratio Sodium Potassium Chloride Carbon Dioxide Anion Gap BUN Creatinine Est Cr Clr Drug Dosing Est GFR ( Amer) Est GFR (Non-Af Amer) BUN/Creatinine Ratio Glucose POC Glucose POC Lactic Acid Jesus 4.33 H Lactate Calcium Total Bilirubin AST ALT Alkaline Phosphatase Total Protein Albumin Globulin Albumin/Globulin Ratio Urine Color Yellow Urine Appearance Cloudy H Urine pH 5.0 Ur Specific [place] 1.020 Urine Protein 2+ H Urine Glucose (UA) Negative Urine Ketones Negative Urine Blood 1+ H Urine Nitrite Positive H Urine Bilirubin Negative Urine Urobilinogen Negative Ur Leukocyte Esterase 1+ H Urine WBC (Auto) 10-30 H Urine RBC (Auto) 0-4 U Hyaline Cast (Auto) 5-10 H U Epithel Cells (Auto) >30 H Urine Bacteria (Auto) 4+ H Ur Renal Epithelial Cell Not Reportable Nasal Screen MRSA (PCR) Influenza Type A Ag Neg for Influ A Influenza Type B Ag Neg for Influ B 12/28/18 12/29/18 12/29/18 22:13 02:20 04:58 WBC RBC Hgb Hct MCV MCH MCHC RDW Std Deviation RDW Coeff of Marisol Plt Count MPV Immature Gran % (Auto) Neut % (Auto) Lymph % (Auto) [place] % (Auto) Eos % (Auto) Baso % (Auto) Immature Gran # (Auto) Neut # (Auto) Lymph # (Auto) [place] # (Auto) Eos # (Auto) Baso # (Auto) Absolute Nucleated RBC Nucleated RBC % (auto) PT 10.1 INR 1.0 APTT < 20.0 L PTT Ratio < 0.8 Sodium Potassium Chloride Carbon Dioxide Anion Gap BUN Creatinine Est Cr Clr Drug Dosing Est GFR ( Amer) Est GFR (Non-Af Amer) BUN/Creatinine Ratio Glucose POC Glucose 212 H POC Lactic Acid Jesus Lactate Calcium Total Bilirubin AST ALT Alkaline Phosphatase Total Protein Albumin Globulin Albumin/Globulin Ratio Urine Color Urine Appearance Urine pH Ur Specific [place] Urine Protein Urine Glucose (UA) Urine Ketones Urine Blood Urine Nitrite Urine Bilirubin Urine Urobilinogen Ur Leukocyte Esterase Urine WBC (Auto) Urine RBC (Auto) U Hyaline Cast (Auto) U Epithel Cells (Auto) Urine Bacteria (Auto) Ur Renal Epithelial Cell Nasal Screen MRSA (PCR) Negative Influenza Type A Ag Influenza Type B Ag 0312/29/18 12/29/18 07:54 08:43 09:05 WBC 13.94 H RBC 3.64 L Hgb 11.9 L Hct 37.1 MCV 101.9 H MCH 32.7 MCHC 32.1 RDW Std Deviation 54.7 H RDW Coeff of Marisol 14.6 H Plt Count 261 MPV 11.0 H Immature Gran % (Auto) 0.4 Neut % (Auto) 91.0 Lymph % (Auto) 2.4 [place] % (Auto) 5.7 Eos % (Auto) 0.4 Baso % (Auto) 0.1 Immature Gran # (Auto) 0.05 H Neut # (Auto) 12.69 H Lymph # (Auto) 0.34 L [place] # (Auto) 0.79 H Eos # (Auto) 0.06 Baso # (Auto) 0.01 Absolute Nucleated RBC Nucleated RBC % (auto) PT INR APTT PTT Ratio Sodium Potassium Chloride Carbon Dioxide Anion Gap BUN Creatinine Est Cr Clr Drug Dosing Est GFR ( Amer) Est GFR (Non-Af Amer) BUN/Creatinine Ratio Glucose POC Glucose 173 H POC Lactic Acid Jesus Lactate 1.6 Calcium Total Bilirubin AST ALT Alkaline Phosphatase Total Protein Albumin Globulin Albumin/Globulin Ratio Urine Color Urine Appearance Urine pH Ur Specific [place] Urine Protein Urine Glucose (UA) Urine Ketones Urine Blood Urine Nitrite Urine Bilirubin Urine Urobilinogen Ur Leukocyte Esterase Urine WBC (Auto) Urine RBC (Auto) U Hyaline Cast (Auto) U Epithel Cells (Auto) Urine Bacteria (Auto) Ur Renal Epithelial Cell Nasal Screen MRSA (PCR) Influenza Type A Ag Influenza Type B Ag 12/29/18 09:05 WBC RBC Hgb Hct MCV MCH MCHC RDW Std Deviation RDW Coeff of Marisol Plt Count MPV Immature Gran % (Auto) Neut % (Auto) Lymph % (Auto) [place] % (Auto) Eos % (Auto) Baso % (Auto) Immature Gran # (Auto) Neut # (Auto) Lymph # (Auto) [place] # (Auto) Eos # (Auto) Baso # (Auto) Absolute Nucleated RBC Nucleated RBC % (auto) PT INR APTT PTT Ratio Sodium 140 Potassium 4.8 D Chloride 107 Carbon Dioxide 29 Anion Gap 4.0 BUN 28 H Creatinine 1.40 H Est Cr Clr Drug Dosing 36.6 Est GFR ( Amer) 41.3 Est GFR (Non-Af Amer) 35.6 BUN/Creatinine Ratio 20.2 H Glucose 170 H POC Glucose POC Lactic Acid Jesus Lactate Calcium 9.0 Total Bilirubin AST ALT Alkaline Phosphatase Total Protein Albumin Globulin Albumin/Globulin Ratio Urine Color Urine Appearance Urine pH Ur Specific [place] Urine Protein Urine Glucose (UA) Urine Ketones Urine Blood Urine Nitrite Urine Bilirubin Urine Urobilinogen Ur Leukocyte Esterase Urine WBC (Auto) Urine RBC (Auto) U Hyaline Cast (Auto) U Epithel Cells (Auto) Urine Bacteria (Auto) Ur Renal Epithelial Cell Nasal Screen MRSA (PCR) Influenza Type A Ag Influenza Type B Ag (1) UTI (urinary tract infection) Hematuria presence: without hematuria Urinary tract infection type: site un specified Qualified Code(s): N39.0 - Urinary tract infection, site not specified (2) Sepsis Sepsis type: sepsis due to unspecified organism Qualified Code(s): A41.9 - Sepsis, unspecified organism
[2018-12-29] MEDS: INSULIN ASPART 100 UNITS/ML 3 ML PEN SC SCH ×2 (08:46→15:29)
[2018-12-29] MEDS ORDERED: INSULIN DETEMIR FLEXPEN/FLEX TOUCH 100 UNITS/ML 3ML SQ SCH (09:00)
[2018-12-29] MEDS ORDERED: DICLOFENAC SOD 1% GEL 100 GM TUBE EXT SCH (09:00)
[2018-12-29] MEDS ORDERED: FLUTICASONE/SALMETEROL 250/50 (ADVAIR) 14 PUFF/1 INHALER INH SCH (09:00)
[2018-12-29] MEDS ORDERED: ALLOPURINOL 300 MG TAB PO SCH (09:00)
[2018-12-29] MEDS ORDERED: CHOLECALCIFEROL 1,000 UNITS TAB PO SCH (09:00)
[2018-12-29] MEDS ORDERED: METOPROLOL SUCC 50MG EXT REL TAB PO SCH (09:00)
[2018-12-29] MEDS ORDERED: GUAR GUM MS SCH (09:00)
[2018-12-29] MEDS ORDERED: LANTUS PER UNIT CHARGE SQ STA (09:09)
[2018-12-29 09:18] LABS: Basophils # (auto) 0.01 K/uL (0-0.2); Basophils % (auto) 0.1 %; Eosinophils # (auto) 0.06 K/uL (0-0.5); Eosinophils % (auto) 0.4 %; Hematocrit (blood only) 37.1 % (37-47); Hemoglobin 11.9 g/dL (12.0-16.0); Immature Granulocytes # (auto) 0.05 K/uL (0.00-0.02); Immature Granulocytes % (auto) 0.4 %; Lymphocytes # (auto) 0.34 K/uL (1.2-3.4); Lymphocytes % (auto) 2.4 %; Mean Corpuscular Hgb Conc 32.1 g/dL (32-36); Mean Corpuscular Volume 101.9 fL (80-100); Monocytes # (auto) 0.79 K/uL (0.11-0.59); Monocytes % (auto) 5.7 %; Neutrophils # (auto) 12.69 K/uL (1.4-6.5); Platelet Count 261 K/uL (130-400); RDW Coefficient of Variation 14.6 % (11.5-14.5); RDW Standard Deviation 54.7 fL (36.4-46.3); Red Blood Count 3.64 M/uL (4.2-5.4); White Blood Count 13.94 K/uL (4.8-10.8)
[2018-12-29 09:50] LABS: BUN Creatinine Ratio 20.2 (10-20); Creatinine Clr Calc Pharmacy 36.6 ml/min; Est GFR (African American) 41.3; Est GFR (Non-African American) 35.6; Potassium 4.8 mmol/L (3.5-5.1)
[2018-12-29] MEDS ORDERED: MICONAZOLE NITRATE POWDER 43 GM EXT SCH (10:15)
--- NOTE | 2018-12-29 10:54 | Family Medicine Progress Note ---
Date of Service December 29, 2018 Subjective 78-year-old female with a past medical history of hyperlipidemia, diabetes, hypertension and metastatic bladder cancer presents with encephalopathy Physical Exam Vital Signs (Past 24 Hours): Last Vital Signs Temp 37.2 C 12/29/18 07:07 Pulse 104 H 12/29/18 09:00 Resp 20 12/29/18 07:07 BP 133/62 12/29/18 07:07 Pulse Ox 91 12/29/18 07:07 Resident Activity Tracking Resident Involvement: Resident Care Provided Care Provided: Adult Hospital Medicine
[2018-12-29] MEDS: MoRPHine SULFATE 2 MG/ML CARP IV PRN ×2 (11:25→16:01)
[2018-12-29] MEDS ORDERED: INSULIN ASPART 100 UNITS/ML 3 ML PEN SC SCH (12:04)
[2018-12-29 15:57] VITALS: TEMP 98.6
--- NOTE | 2018-12-29 17:18 | CT Scan Report ---
CT SCAN OF THE BRAIN WITHOUT IV CONTRAST CLINICAL HISTORY: Change in mental status. Cancer history. COMPARISON STUDY: CT of the brain dated 05/22/2015. MRI of the brain dated 02/20/2016. TECHNIQUE: Unenhanced axial CT scan of the brain is performed from the vertex to the skull base. A do se lowering technique was utilized adhering to the principles of ALARA. CT DOSE: 614.27 mGy.cm FINDINGS: Brain parenchyma: There are blood products within the posterior horn of the right lateral ventricle. Trace blood is also similar in the posterior horn of the left lateral ventricle. There are age-relate d involutional changes noting advanced confluent subcortical and periventricular microangiopathic ch vandana. There is no parenchymal hematoma, mass effect, or evidence of acute territorial ischemia by CT criteria. Florentino-white matter differentiation is preserved. No extra-axial fluid collection is seen. Ventricles, sulci, cisterns: Prominent secondary to involutional change. See above for discussion of intraventricular hemorrhage. Intracranial vasculature: There is atherosclerotic calcification of the cavernous carotid arteries. Calvarium: There are numerous osteolytic calvarial lesions. The largest are seen at the right vertex and measure up to 14 mm (axial image #29). These are new from the 05/22/2015 examination and highly co ncerning for metastatic disease. Sinuses and mastoids: There is trace fluid within the left sphenoid sinus. The remaining paranasal si nuses are clear. The mastoid air cells are well pneumatized. Orbits: The bony orbits are grossly intact. There are bilateral ocular lens implants. IMPRESSION: 1. There is intraventricular hemorrhage identified within the posterior horns of the lateral ventricl es, right greater than left. 2. There is no parenchymal hemorrhage, mass effect, or evidence of acute territorial ischemia by CT c riteria. 3. There are numerous osteolytic calvarial lesions, new from the 2014 examination. This is highly con cerning for osseous metastatic disease. Electronically signed by: Jayy Eduardo M.D. 12/29/2018 5:17 PM
--- NOTE | 2018-12-29 18:28 | Discharge Summary ---
Date of Service December 29, 2018 Admission HPI Per Admitting Provider 78-year-old female with a past medical history of metastatic bladder cancer presents with worsening encephalopathy, nausea/vomiting/diarrhea/fever over the past 5 days. The history is provided by her daughter. She states that the patient has declined over the past couple months and has had a number of falls at home that resulted in admission to a jail facility, [facility]. She states that the patient has had worsening mental status over this period. She describes her baseline mentation as being somewhat forgetful, but no overt dementia. The daughter describes her bladder cancer as being in remission after 10 years. She described having metastasis to her breast, lungs, brain. She states that she would get yearly cystoscopy, but has been noncompliant over the past 2 years. The patient presented to the hospital with urinary retention and concern for urosepsis. On abdominal CT, the patient was found to have right hydronephrosis and urinalysis was positive for infection. Her encephalopathy was considered to be secondary to acute infection. On admission, further history regarding cancer history prompted us to obtain further imaging of the brain. Admission Exam Per Admitting Provider The patient is awake, alert and oriented 3, normocephalic and atraumatic, lying in bed and in moderate distress secondary to right-sided back pain. HEENT--PERRL, EOMI, mucous membranes and oropharynx dry. Neck--supple. No JVD. No bruits. Thyroid normal, trachea midline, no adenopathy. Heart--normal S1 and S2. No murmurs, rubs or gallops. Lungs--clear bilaterally, no respiratory distress, no accessory muscle use. Abdomen/back--normal bowel sounds and soft. Nondistended. Moderately severe right flank pain with applied pressure. Extremities--no cyanosis or clubbing. No edema. There are good distal pulses b/l. Dermatologic--normal skin turgor, normal color, no abnormal lymph nodes, no rash. Neurologic--cranial nerves II through XII grossly intact. Rheumatologic--normal range of motion. Psychiatric--normal affect. Principal Diagnosis Acute encephalopathy, intraventricular hemorrhage, osteolytic lesions of the skull Discharge Exam Constitutional + obese and + disheveled; no acute distress Eyes PERRL ENMT external ear and nose normal, oropharynx normal Neck trachea midline, no thyromegaly Respiratory normal respiratory effort, lungs clear to auscultation Cardiovascular RRR, no murmur, no edema Gastrointestinal (Abdomen) normal bowel sounds, soft, nontender, no hepatosplenomegaly Musculoskeletal no cyanosis or clubbing, extremities motor strength 5/5 Skin no rashes, warm and dry Neurologic + confused Speech / Cognition: + abnormal speech Psychiatric Orientation: oriented to person and oriented to time; + not alert and + not oriented to place Discharge Data Allergies Allergy/AdvReac Type Severity Reaction Status Date / Time Fibrate Anti-Lipidemics Allergy Unknown SEVERE LEG Verified 12/28/18 23:17 PAIN/CRAMPING latex Allergy Unknown SKIN Verified 12/28/18 23:17 TEARING Zlxdgyn-Viz-Tfv Reductase AdvReac Unknown SEVERE LEG Verified 12/28/18 23:17 Inhibitor PAIN/CRAMPING Unclassified Drugs Allergy Unknown CAT GUT Uncoded 12/28/18 23:17 SUTURES Consultations 12/28/18 23:33 ED Decision to Admit Stat 12/29/18 02:05 Consult Case Management - Discharge Planning Routine Consult Urology Routine Ordered Studies 12/28/18 21:46 CT abd pelvis wo con Stat 12/29/18 16:35 CT head/brain wo con Routine [place], [place] [phone] CT Scan Report Patient: CHENTE AVITIA Date: 12/29/18 MR#: [id number]: [address] Acct ID:[id number]: [facility] Date[facility] 1940[facility] Zip: [place] [address] Age: 78Location: 2N Sex: F Room/Bed: [facility] Att Phy: Olayinka Kaplan D.O.Diagnosis: SEPSIS,BLADDER CA,RT URETER OBSTRUCTION,RT HYDROUR [facility]: 12[facility]18 Fam Phy: Interpreting Phy: Jayy Eduardo MD Admit Phy: Agustín Reyes M.D. Ordering Phy: Santi Aaron MD cc: ~ CT SCAN OF THE BRAIN WITHOUT IV CONTRAST CLINICAL HISTORY: Change in mental status. Cancer history. COMPARISON STUDY: CT of the brain dated 05/22/2015. MRI of the brain dated 02/20/2016. TECHNIQUE: Unenhanced axial CT scan of the brain is performed from the vertex to the skull base. A dose lowering technique was utilized adhering to the principles of ALARA. CT DOSE: 614.27 mGy.cm FINDINGS: Brain parenchyma: There are blood products within the posterior horn of the right lateral ventricle. Trace blood is also similar in the posterior horn of the left lateral ventricle. There are age-related involutional changes noting advanced confluent subcortical and periventricular microangiopathic change. There is no parenchymal hematoma, mass effect, or evidence of acute territorial ischemia by CT criteria. Florentino-white matter differentiation is preserved. No extra-axial fluid collection is seen. Ventricles, sulci, cisterns: Prominent secondary to involutional change. See above for discussion of intraventricular hemorrhage. Intracranial vasculature: There is atherosclerotic calcification of the cavernous carotid arteries. Calvarium: There are numerous osteolytic calvarial lesions. The largest are seen at the right vertex and measure up to 14 mm (axial image #29). These are new from the 05/22/2015 examination and highly concerning for metastatic disease. Sinuses and mastoids: There is trace fluid within the left sphenoid sinus. The remaining paranasal sinuses are clear. The mastoid air cells are well pneumatized. Orbits: The bony orbits are grossly intact. There are bilateral ocular lens implants. IMPRESSION: 1. There is intraventricular hemorrhage identified within the posterior horns of the lateral ventricles, right greater than left. 2. There is no parenchymal hemorrhage, mass effect, or evidence of acute territorial ischemia by CT criteria. 3. There are numerous osteolytic calvarial lesions, new from the 2015 examination. This is highly concerning for osseous metastatic disease. Electronically signed by: Jayy Eduardo M.D. 12/29/2018 5:17 PM Dictated: 12/29/181708 Transcribed: 12/29/181708 [facility], [place] [phone] CT Scan Report Patient: CHENTE AVITIA Date: 12/28/18 MR#: [id number]: [address] Acct ID:[id number]: [facility] Date: 1940[facility] Zip: [place] [address] Age: 78Location: ED Sex: F Room/Bed: Att Phy: Diagnosis: ILLNESS, VOMITING DIARRHEA, AMS Pema Phy: Priscilla Oliver Date: 12/28/18 Fam Phy: Interpreting Phy: Jayy Eduardo MD Admit Phy: Ordering Phy: Ben Mclaughlin MD cc: ~ CT SCAN OF THE ABDOMEN AND PELVIS WITHOUT IV CONTRAST CLINICAL HISTORY: Generalized abdominal pain. COMPARISON STUDY: Abdominal CT dated 05/05/2017. TECHNIQUE: CT scan of the abdomen and pelvis is performed from the lung bases to the proximal femora. Images are reviewed in the axial, sagittal, and coronal planes. IV contrast was not administered for this examination as per the [facility] clinician. Note that the examination was performed in significantly suboptimal fashion without oral and IV contrast. The examination is also compromised by streak and motion artifact. A dose lowering technique was utilized adhering to the principles of ALARA. CT DOSE: 1981.72 mGy.cm FINDINGS: Lung bases: The heart is enlarged without pericardial effusion. The tip of a central venous infusion port terminates at the cavoatrial junction. The coronary arteries are densely calcified. There is a small hiatal hernia. There is no airspace consolidation or pleural effusion. Bibasilar scarring/atelectasis is noted. Postoperative change is suggested at the left lung base. Liver: The unenhanced liver is enlarged, measuring 19 cm in length. There is evidence of hepatic steatosis, with fatty sparing seen adjacent to gallbladder fossa. There is no intrahepatic biliary ductal dilatation. Gallbladder: Unremarkable. Spleen: Normal in size and attenuation. There are numerous calcified splenic granulomas. Pancreas: The unenhanced pancreas is atrophic and grossly unremarkable. Adrenal glands: A 2 cm left adrenal adenoma is unchanged. The right adrenal gland is normal in appearance. Kidneys: The unenhanced kidneys are atrophic. There is moderate right hydroureteronephrosis. The right ureter is distended to the level of the bladder. No hydronephrosis is seen on the left. There is a punctate nonobstructing calculus in the left upper pole. A 12 mm exophytic cyst arises from the left lower pole. Abdominal vasculature: The abdominal aorta is normal in course and caliber noting advanced atherosclerotic calcification. Bowel: There is moderate colonic fecal retention. No bowel obstruction is seen. Colonic lipomas are suggested. The appendix is well-visualized and normal. Peritoneum: There is laxity of the ventral abdominal wall with protrusion of abdominal contents. There is no intraperitoneal free air or abdominal ascites. Lymphadenopathy: None. Pelvic viscera: The bladder is distended but otherwise normal in appearance. The uterus is atrophic versus surgically absent. No adnexal lesion is seen. Skeletal structures: The skeletal structures are osteopenic. There is moderate lumbosacral spondylosis. No lytic or blastic lesions are seen. IMPRESSION: 1. Significantly suboptimal examination without oral and IV contrast. The examination is also compromised by streak and motion artifact. 2. There is moderate right hydroureteronephrosis. The ureter is dilated to the level of the significantly distended bladder. No clear cause of obstruction is seen, and this is new from the 05/05/2017 examination. 3. There is no left-sided hydronephrosis. 4. Cardiomegaly. 5. Colonic fecal retention. 6. Hepatomegaly and hepatic steatosis. 7. There is a punctate nonobstructing left renal calculus. 8. Additional findings as above. Electronically signed by: Jayy Eduardo M.D. 12/28/2018 11:14 PM Dictated: 12/28/18 2304 Transcribed: 12/28/18 230 Hospital Course (1) Intraventricular hemorrhage: 78-year-old female with a past medical history of metastatic bladder cancer presents with worsening encephalopathy, nausea/vomiting/diarrhea/fever over the past 5 days. Was initially admitted for treatment of urosepsis. Transfer to [facility] was commenced following CT results showing in traventricular hemorrhage and osteolytic cranial lesions. Intraventricular hemorrhage/osteo-lytic lesions Found on CT, no pain mass effect Neurology recommends transfer to a center with neurosurgery, EEG and repeat brain imaging Transfer to [facility] Patient was previously on aspirin, was held at the time of admission Sepsis based on SIRS criteria, urosepsis secondary to obstructive uropathy? Presented with fevers T-max 38.7, white count of 14.95, tachycardia Abdominal CT showed right hydronephrosis Urology consult, no intervention or cystoscopy at this time Treated with IV Zosyn UA positive for infection, urine culture showed mixed todd Hypertension Pressures holding well Home medications include metoprolol, lisinopril Currently holding lisinopril Diabetes 60 units of Lantus per day, sliding scale insulin, metformin Hyperlipidemia Home medication includes cholestyramine (2) Osteolytic lesion due to metastasis: (3) Sepsis: (4) UTI (urinary tract infection): (5) Vomiting and diarrhea: (6) Acute dehydration: (7) Hydroureteronephrosis: Total Time Total Time Spent Total Time Spent (In Minutes): Greater than 30 minutes Total Time Includes: Examination of the Patient, Discharge Planning, Medication Reconciliation and Communication With Other Providers Discharge Plan Discharge Items Patient Disposition: Transfer Acute Care Hospital Reason For Visit: SEPSIS,BLADDER CA,RT URETER OBSTRUCTION,RT HYDROUR Discharge Diagnosis: Intraventricular hemorrhage, osteolytic calvarial lesions Condition: Serious Discharge Goals: Diagnostic testing, Improve disease control and Therapeutic intervention Activity: Per 'Additional Instructions' section Non-emergency contact: Primary Care Provider, Surgeon, Neurologist and Urologist Follow-up/Referrals: Fredrick Oliver [Primary Care Provider] - Diet: Nothing by mouth Addtl Provider Instructions: 78-year-old female with a past medical history of metastatic bladder cancer presents with worsening encephalopathy, nausea/vomiting/diarrhea/fever over the past 5 days. Was initially admitted for treatment of urosepsis. Transfer to [facility] was commenced following CT results showing intraventricular hemorrhage and osteolytic calvarial lesions. Intraventricular hemorrhage/osteo-lytic calvarial lesions Neurology consulted, recommends transfer to a center with neurosurgery. Recommend EEG and repeat brain imaging Transfer to [facility] Patient was previously on aspirin, was held at the time of admission Sepsis based on SIRS criteria, urosepsis secondary to obstructive uropathy? Presented with fevers T-max 38.7, white count of 14.95, tachycardic Abdominal CT showed right hydronephrosis Urology consult, no intervention or cystoscopy at this time Treated with IV Zosyn UA positive for infection, urine culture showed mixed todd Hypertension Home medications include metoprolol, lisinopril Currently holding lisinopril Diabetes 60 units of Lantus per day, sliding scale insulin, metformin Hyperlipidemia Home medication includes cholestyramine Prescriptions: Continued insulin lispro [Humalog U-100 Insulin] 100 unit/mL Solution 1 sliding scale dose SUBCUT USEASDIRECTD RF: 0 Lantus U-100 Insulin 100 unit/mL Solution 60 units subcut DAILY RF: 0 Discontinued metformin 500 mg Tablet 1,000 mg PO BID RF: 0 lisinopril [Zestril] 20 mg Tablet 40 mg PO DAILY RF: 0 aspirin [Aspir-81] 81 mg Tablet,Delayed Release (Dr/Ec) 81 mg PO DAILY RF: 0 meloxicam [Mobic] 7.5 mg Tablet 7.5 mg PO BID PRN (Reason: Pain) RF: 0 allopurinol 300 mg Tablet 300 mg PO QAM RF: 0 Cholestyramine Light 4 gram Powder In Packet 4 g PO HS RF: 0 fluticasone propion-salmeterol [Advair Diskus] 250-50 mcg/dose blister with device 1 inha INH BID Qty: 60 RF: 3 acetaminophen [Tylenol] 325 mg Tablet 650 mg PO TID PRN (Reason: Pain) RF: 0 acetaminophen [Tylenol] 325 mg Tablet 650 mg PO Q6H PRN (Reason: Fever Or Pain) RF: 0 magnesium hydroxide [Milk of Magnesia] 400 mg/5 mL Suspension 30 ml PO UD PRN (Reason: Constipation) RF: 0 bisacodyl [Dulcolax (bisacodyl)] 10 mg Suppository 10 mg HI UD PRN (Reason: Constipation) RF: 0 guar gum Powder 4 g miscellaneous Q12 RF: 0 nystatin 100,000 unit/gram Powder 1 applic TOPICAL BID RF: 0 cholecalciferol (vitamin D3) [Vitamin D3] 2,000 unit Tablet 2,000 unit PO DAILY RF: 0 metoprolol succinate 100 mg tablet extended release 24 hr 100 mg PO DAILY RF: 0 diclofenac sodium [Voltaren] 1 % gel 4 g topical DAILY RF: 0 Stand-Alone Forms: [facility] Discharge Orders: Discharge Order (Routine); Ordered 12/29/18 Ordered By: Gael More Admission Data Admit Date/Time: 12/29/18 01:15 Attending Provider: Olayinka Kaplan Admit Provider: Agustín Reyes Primary Care Provider: Fredrick Oliver Other Providers: Agustín Reyes ; Ben Delatorre Service: Telemetry Medical Other Pending Studies at Discharge: No Supervising Physician Co-Signing Physician Notes I personally examined the patient and verified all linares points of history and exam, discussed case, and agree with decision making with Dr More. No meaningful HPI or review of systems obtainable from patient. Dr. More and I had extensive discussions with the daughter. Explained working diagnoses and plans, as well as answered all questions to the best of our ability. Later revisited by Dr. More to discuss CT findings, and transfer was arranged. Vitals noted, in general she is lying in bed no distress. H EENT normocephalic atraumatic mucous membranes moist, no focal neuro deficits. Breathing is unlabored no accessory muscle use. Skin mild pallor at worst, no rashes no icterus Septic pictureappearing most likely UTI, urinary retention. Given the asymmetric distention of her urinary collecting system, most likely a right- sided pyelo would be at play. Zosyn given her equivocal culture results but recent rehab and SNF stays after a hospital stay. Septic parameters did improve. Continue current care in this regard Urinary retention/hydronephrosisseen by urology and did not feel that cystoscopy was warranted. That said given her prior bladder malignancy, if it does not improve treating as an acute reaction to infection, cystoscopy should be pursued at a later date. For now Cantu drainage, follow closely. Intracranial bleedingshe shows no focal neuro deficits, her delirium has been going on for about a week, and daughter notes she has had worsening over the last several weeks. Essentially it is quite difficult to tell how much of her delirium is from the UTI/sepsis picture and how much may relate to this. 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 She is transferred to tertiary care for neurosurgery backup. Painappears to be renally mediated given her hydronephrosis/hydroureter. Discussed with daughter given that and the infectious picture, treating as though she is having an active pyelonephritis. Hip painin visually reviewing the CT of her abdomen/pelvis, her right hip is in view, does appear fairly arthritic, without any necessarily fractures or dislocations. I suspect this is most likely the culprit for her hip pain. Serial exams/watchful waiting. If she is unable to show progress when she is able to start working with PT/OT, then dedicated studies of the hip may be warranted. Resident Activity Tracking Resident Involvement: Resident Care Provided Care Provided: Adult [facility] Medicine
[2018-12-29 19:49] VITALS: PULSE 81; O2SAT 97
[2018-12-29 20:07] VITALS: BP 91/49
[2018-12-29] MEDS ORDERED: CHOLESTYRAMINE LIGHT 4 GM PKT PO SCH (22:00)
[2018-12-29] MEDS ORDERED: HEPARIN SOD 5,000 UNIT/0.5 ML VIAL SQ SCH (22:00)
[2018-12-30] MEDS ORDERED: METOPROLOL SUCC 50MG EXT REL TAB PO SCH (09:00)
== END 2018-12-29 20:35 | disposition short-term general hospital (02) | DRG 871 ==
LOC: ED 21:01 → SUATTDRO 12-29 01:15 → 2N 12-29 01:15